=== PATIENT | male | born 1955 | race Caucasian/White ===

== ENCOUNTER 2024-12-26 15:12 | Emergency (ER) | payer MEDICARE, SELFPAY ==
--- NOTE | 2024-12-26 15:13 | ED_ITS ---
HPI - General Adult General Chief complaint: Upper Respiratory Infection Stated complaint: stomach/achey Time Seen by Provider: 12/26/24 15:24 Source: patient and RN notes reviewed Mode of arrival: ambulatory Limitations: no limitations History of Present Illness HPI narrative: 69-year-old male presents to the [facility] with complaints of having sweats, body aches, muscle and bone pain, nausea. Patient started 3 days ago. No treatment prior to arrival. Patient denies any chest pain, shortness of breath. Denies any vomiting. Unsure if he has been running a fever History of diabetes, hypertension Treatments prior to arrival: none Related Data Home Medications ?Medication ?Instructions ?Recorded ?Confirmed ?Last Taken ?Type allopurinol 300 mg tablet mg 12/26/24 Unknown History amlodipine 10 mg tablet mg 12/26/24 Unknown History insulin glargine 100 unit/mL (3 unit subcut 12/26/24 Unknown History mL) subcutaneous pen (Lantus Solostar U-100 Insulin) insulin lispro 100 unit/mL subcut 12/26/24 Unknown History subcutaneous pen (Humalog KwikPen (U-100) Insulin) telmisartan 80 tablet 12/26/24 Unknown History mg-hydrochlorothiazide 12.5 mg tablet Allergies Allergy/AdvReac Type Severity Reaction Status Date / Time bacitracin Allergy Unknown Unknown Verified 12/26/24 15:28 Review of Systems Review of Systems: All systems reviewed & are unremarkable except as noted in HPI and below Constitutional: Constitutional: Reports as per HPI ENT: Reports system reviewed and no additional complaints, except as documented Cardiovascular: Cardiovascular: Reports no additional cardiovascular complaints, Denies chest pain and Denies dyspnea Respiratory: Respiratory: Reports no additional respiratory complaints, Denies chest congestion, Denies cough and Denies dyspnea Musculoskeletal: Musculoskeletal: Reports as per HPI Integumentary/Breasts: Skin/Breast: Reports system reviewed and no additional complaints, except as docu [facility] Past Medical History Medical History (Updated 12/26/24 @ 19:39 by Aisha Marley APRN) History of essential hypertension Comments At the time of my signature, I reviewed and agree with the nursing past medical, surgical, social, and family history. There is no relevant family history pertinent to the patient complaint. Exam Const: General: cooperative, healthy appearing, comfortable, no acute distress, well developed, alert, tired appearing and well nourished Nutritional Appearance: well nourished Orientation/consciousness: patient oriented x3 Limitations: no limitations HENMT: Head: normal to inspection Ears: hearing grossly normal bilaterally, external ears normal, TM's normal bilaterally, EAC's normal, mastoids normal and no periauricular adenopathy Mouth: Yes Normal oral and palatal mucosa present, Yes lip normal, Yes tongue normal and Yes moist mucous membranes Throat: posterior oropharynx normal, uvula midline and no uvular edema Eyes: General: appearance normal, both eyes and all related structures Alignment and Position: alignment normal Neck: Neck: normal visual inspection, full ROM, no lymphadenopathy and no meningeal signs Chest: Chest palpation & inspection: normal inspection of the chest Resp: Effort & Inspection: normal respiratory effort and able to speak in complete sentences Auscultation: clear to auscultation bilaterally, no crackles, no rales, no rhonchi and no wheezes Cardio: Rate: regular rate Skin: General skin exam: normal color and no rashes or lesions noted Neuro: General: patient oriented x3, gait normal, moves all extremities and no meningeal signs Cognition (Neuro): normal cognition Speech: normal speech Gait exam (Neuro): Normal gait present Extrem: General: normal to inspection, full ROM, capillary refill normal and normal gait Psych: Appearance: grossly normal and well kempt Mental Status: mental status grossly normal Speech and movement: Normal speech and movement present and Clear speech present Affect: normal affect Attitude: cooperative Course Course Level of Care: Express Care Visit Vital Signs Vital signs: Vital Signs Temperature 99.1 F 12/26/24 15:20 Pulse Rate 76 12/26/24 15:20 Respiratory Rate 12/26/24 15:20 Blood Pressure 148/46 H 12/26/24 15:20 Pulse Oximetry 100 12/26/24 15:20 Oxygen Delivery Room Air 12/26/24 15:20 Temperature 99.1 F 12/26/24 15:20 Pulse Rate 76 12/26/24 15:20 Respiratory Rate 20 12/26/24 15:20 Blood Pressure 148/46 H 12/26/24 15:20 Pulse Oximetry 100 12/26/24 15:20 Oxygen Delivery Room Air 12/26/24 15:20 Reviewed Medical Decision Making MDM Narrative Medical decision making narrative: Patient sitting comfortably in exam room. Nontoxic, vitals stable. Patient in no acute distress Patient presents for 3 day history of body aches, upset stomach. Patient tested for flu and COVID. Patient is flu A positive Patient appropriate for outpatient treatment with close follow-up Discharge instructions reviewed with patient, as well as provided in writing per nursing staff. The instructions also include specific and strict return/GO TO THE ER as well as f/u information. All questions have been answered, and the patient deny any further questions with discharge and discharge plan. Some parts of this dictation were generated by voice recognition software and may contain typographical and/or grammatical inaccuracies. Differential Diagnosis Differential Diagnosis: Flu, COVID, URI Medical Records Medical records reviewed: Yes I reviewed the external patient's medical records. Vital Signs Vital Signs: Vital Signs Temperature 99.1 F 12/26/24 15:20 Pulse Rate 76 12/26/24 15:20 Respiratory Rate 20 12/26/24 15:20 Blood Pressure 148/46 H 12/26/24 15:20 Pulse Oximetry 100 12/26/24 15:20 Oxygen Delivery Room Air 12/26/24 15:20 Temperature 99.1 F 12/26/24 15:20 Pulse Rate 76 12/26/24 15:20 Respiratory Rate 20 12/26/24 15:20 Blood Pressure 148/46 H 12/26/24 15:20 Pulse Oximetry 100 12/26/24 15:20 Oxygen Delivery Room Air 12/26/24 15:20 Reviewed Lab Data Lab results reviewed: Yes I reviewed the patient's lab results. Labs: Lab Results 12/26/24 Range/Units 15:26 POC Influenza A Ag Positive (Negative) POC Influenza B Ag Negative (Negative) POC SARS CoV-2 Ag Negative (Negative) Reviewed Critical Care Time Critical Care Time Critical Care Time: No Discharge Plan Discharge Clinical Impression: Influenza A Patient Disposition: Home Condition: Stable Instructions: Antibiotic Form, Influenza (ED) Additional Instructions: Your rapid COVID test were negative Your rapid flu test was positive for influenza A Your symptoms are due to a viral illness, which is not treated with antibiotics. Typically viral infections last 7-10 days, can linger for couple of weeks. It is very important to treat your symptoms. Drink plenty of water, Gatorade, Pedialyte, ice pops or Jell-O. -Alternate Tylenol and Motrin per package directions for fever or pain. You can alternate every 4 hours -Antihistamine medication such as Zyrtec/Claritin/Gerda during the day can help improve symptoms. -doing daily nasal irrigations can help relieve pressure your sinuses. Things like a Neti pot -Use Flonase twice a day for 5 days then daily to help reduce the inflammation and dry up your sinuses. -You can also use Mucinex. Be sure to drink plenty of water with this medication at least 8 ounces with every dose and it is important to drink 8 to 10 glasses of water per day. Water is a natural decongestant -Eat and drink things that are easy to swallow, like tea or soup, or popsicles. -Oral rinses such as: Salt water gargles and/or may use topical anesthetic (eg. Chloraseptic spray) or lozenges to relieve dryness or throat pain). -Frequent hand washing or hand marine oil terminal superintendent is one of the best ways to prevent spread of infection. -Using a vaporizer or humidifier at night will also help thin secretions and help with coughing up phlegm. -Follow up with primary care provider in 7-10 days if condition is not improving - For new or worsening symptoms go directly to the nearest ER Patient Language: Divehi Prescriptions: No Action amlodipine 10 mg tablet telmisartan-hydrochlorothiazid 80-12.5 mg tablet allopurinol 300 mg tablet insulin lispro [Humalog KwikPen Insulin] 100 unit/mL insulin pen SUBCUT insulin glargine [Lantus Solostar U-100 Insulin] 100 unit/mL (3 mL) insulin pen SUBCUT Follow-up/Referrals: Norma,MD Kayla [Primary Care Provider] - 2 Weeks ([facility] follow up ) Time of Disposition: 15:37
[2024-12-26 15:20] VITALS: BP 148/46; PULSE 76; RESP 20; TEMP 37.3; O2SAT 100
--- OUTSIDE RECORDS SUMMARY | 2024-12-26 15:20 | XMS_ITS | Encounter Summary ---
Author Organization [facility] Address [address] 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); Cellulitis of right lower limb; Type 2 diabetes mellitus with foot ulcer (CODE) (HCC) Social History Tobacco Use Types Packs/Day Years Used Date Smoking Tobacco: Never Assessed Sex and Gender Information Value Date Recorded Sex Assigned at Not on file Legal Sex Male 2:42 PM CDT Gender Identity Not on file Sexual Orientation Not on file documented as of this encounter Plan of Treatment Not on file documented as of this encounter Procedures Procedure Name Priority Date/Time Associated Diagnosis Comments ERYTHROCYTE SEDIMENTATION RATE (ESR) Routine 06/14/2024 3:25 PM CONSTRUCTION TEACHER 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) Cellulitis of right lower limb Type 2 diabetes mellitus with foot ulcer (CODE) (HCC) COMPLETE BLOOD COUNT (CBC) WITHOUT DIFF Routine 06/14/2024 3:25 PM CONSTRUCTION TEACHER 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) Cellulitis of right lower limb Type 2 diabetes mellitus with foot ulcer (CODE) (HCC) C-REACTIVE PROTEIN (CRP) QUANT Routine 06/14/2024 3:25 PM CONSTRUCTION TEACHER 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) Cellulitis of right lower limb Type 2 diabetes mellitus with foot ulcer (CODE) (HCC) BASIC METABOLIC PANEL W/ CALCIUM TOTAL Routine 06/14/2024 3:25 PM CONSTRUCTION TEACHER 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 Results should be clinically correlated. Blood No Phlebotomy Charged / Unknown 06/14/2024 3:25 PM CONSTRUCTION TEACHER 06/14/2024 5:56 PM CONSTRUCTION TEACHER us Christ Russo MD HEMATOLOGY ORDERABLES Final Resu lt [facility] [address] [place] [address] * (ABNORMAL) COMPLETE BLOOD COUNT (CBC) WITHOUT DIFF (06/14/2024 3:25 PM CONSTRUCTION TEACHER) WBC 7.44 4.00 - 12.00 10(3)/mcL 06/14/2024 6:00 PM CONSTRUCTION TEACHER [facility] RBC 2.98(L) 4.40 - 5.80 10(6)/mcL 06/14/2024 6:[address] [facility] HEMOGLOBIN (HGB) 9.1(L) 13.0 - 16.5 g/dL 06/14/2024 6:00 PM [facility] HEMATOCRIT (HCT) 26.5(L) 38.0 - 50.0 % 06/14/2024 6:00 PM [facility] MCV 88.9 82.0 - 96.0 fL 06/14/2024 6:[address] [facility] MCH 30.5 26.0 - 32.0 pg 06/14/2024 6:00 PM [facility] MCHC 34.3 31.0 - 36.0 g/dL 06/14/2024 6:00 PM [facility] PLATELET COUNT 195 140 - 440 10(3)/mcL 06/14/2024 6:00 PM [facility] RDW 17.1(H) 11.8 - 15.5 % 06/14/2024 6:00 PM [facility] MPV 10.6 8.0 - 12.6 fL 06/14/2024 6:00 PM [facility] Blood No Phlebotomy Charged / Unknown 06/14/2024 3:25 PM CONSTRUCTION TEACHER 06/14/2024 5:56 PM CONSTRUCTION TEACHER us Christ Russo MD HEMATOLOGY ORDERABLES Final Resu lt [facility] [address] [place] [address] * (ABNORMAL) C-REACTIVE PROTEIN (CRP) QUANT (06/14/2024 3:25 PM CONSTRUCTION TEACHER) C-REACTIVE PROTEIN 0.63(H) <0.50 mg/dL 06/14/2024 6:[address] [facility] Blood No Phlebotomy Charged / Unknown 06/14/2024 3:25 PM CONSTRUCTION TEACHER 06/14/2024 5:56 PM CONSTRUCTION TEACHER us Christ Russo MD CHEMISTRY ORDERABLES Final Resul t [facility] [address] [place] [address] * (ABNORMAL) BASIC METABOLIC PANEL W/ CALCIUM TOTAL (06/14/2024 3:25 PM CONSTRUCTION TEACHER) SODIUM 141 136 - 145 mmol/L 06/14/2024 6:[address] [facility] POTASSIUM 5.7(H) 3.5 - 5.1 mmol/L 06/14/2024 6:19 PM [facility] CHLORIDE 112(H) 98 - 107 mmol/L 06/14/2024 6:19 PM [facility] CO2, VENOUS 21(L) 22 - 30 mmol/L 06/14/2024 6:19 PM [facility] ANION GAP 13.7 <18.0 mmol/L 06/14/2024 6:19 PM [facility] GLUCOSE 119(H) 70 - 99 mg/dL 06/14/2024 6:19 PM [facility] BUN 37(H) 8 - 26 mg/dL 06/14/2024 6:19 PM [facility] CREATININE, BLOOD 1.52(H) 0.70 - 1.30 mg/dL 06/14/2024 6:19 PM [facility] BUN/CREATININE RATIO 24(H) 12 - 20 ratio 06/14/2024 6:19 PM [facility] CALCIUM 8.7 8.7 - 10.5 mg/dL 06/14/2024 6:19 PM [facility] GFR, ESTIMATED 50(L) >=60 06/14/2024 6:19 PM [facility] Comment: Creatinine Clearance is the preferred criteria for selecting drug dose adjustments in renally impaired patients. The GFR is provided as additional pertinent clinical information. GFR is reported in mL/min/1.73 sq m. Calculation based on the Chronic Kidney Disease Epidemiology Collaboration (CKD- EPI) equation refit without adjustment for race. GFR, EST. 56(L) >=60 025 6:19 PM CONSTRUCTION TEACHER [facility] GFR, EST. NONAFRICAN 46(L) >=60 06/14/2024 6:19 PM CONSTRUCTION TEACHER [facility] Blood No Phlebotomy Charged / Unknown 06/14/2024 3:25 PM CONSTRUCTION TEACHER 06/14/2024 5:56 PM CONSTRUCTION TEACHER us Christ Russo MD CHEMISTRY ORDERABLES Final Resul t [facility] [address] [place] [address] documented in this encounter Visit Diagnoses Diagnosis Non-pressure chronic ulcer of other part of right lower leg with fat layer exposed Cellulitis of right lower limb Type 2 diabetes mellitus with foot ulcer (CODE) documented in this encounter Care Teams Painter Helper Relationship Specialty Start Date End Date Kayla Green MD [address] [address] [place] [address] [address] PCP - General Family Medicine 06/02/24 documented as of this encounter
--- OUTSIDE RECORDS SUMMARY | 2024-12-26 15:20 | XMS_ITS | Encounter Summary ---
Author Organization [facility] Address [address] 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); Cellulitis of right lower limb Social History Tobacco Use Types Packs/Day Years [...] Procedure Name Priority Date/Time Associated Diagnosis Comments CBC WITH AUTO DIFFERENTIAL Routine 06/28/2024 8:34 AM INTERNET SALESPERSON Type 2 diabetes mellitus with foot ulcer (CODE) (HCC) 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) Cellulitis of right lower limb ERYTHROCYTE SEDIMENTATION RATE (ESR) Routine 06/28/2024 8:34 AM INTERNET SALESPERSON Type 2 diabetes mellitus with foot ulcer (CODE) (HCC) 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) Cellulitis of right lower limb COMPLETE BLOOD COUNT (CBC) WITH DIFF Routine 06/28/2024 8:34 AM INTERNET SALESPERSON Type 2 diabetes mellitus with foot ulcer (CODE) (HCC) 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) Cellulitis of right lower limb C-REACTIVE PROTEIN (CRP) QUANT Routine 06/28/2024 8:34 AM INTERNET SALESPERSON Type 2 diabetes mellitus with foot ulcer (CODE) (HCC) 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) Cellulitis of right lower limb BASIC METABOLIC PANEL W/ CALCIUM TOTAL Routine 06/28/2024 8:34 AM INTERNET SALESPERSON Type 2 diabetes mellitus with foot ulcer (CODE) (HCC) 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0 fL 06/28/2024 10:10 AM [facility] MCH 30.7 26.0 - 32.0 pg 06/28/2024 10:10 AM [facility] MCHC 35.1 31.0 - 36.0 g/dL 06/28/2024 10:10 AM [facility] PLATELET COUNT 186 140 - 440 10(3)/[facility] 06/28/2024 10:10 AM [facility] RDW 16.7(H) 11.8 - 15.5 % 06/28/2024 10:10 AM [facility] MPV 10.7 8.0 - 12.6 fL 06/28/2024 10:10 AM [facility] NEUTROPHILS 61.3 40.0 - 68.0 % 06/28/2024 10:10 AM [facility] LYMPHOCYTES 26.6 19.0 - 49.0 % 06/28/2024 10:10 AM [facility] MONOCYTES 5.7 3.0 - 13.0 % 06/28/2024 10:10 AM [facility] EOSINOPHILS 5.9 0.0 - 8.0 % 06/28/2024 10:10 AM [facility] BASOPHILS 0.5 0.0 - 1.0 % 06/28/2024 10:10 AM [facility] ABSOLUTE NEUTROPHILS 3.87 1.40 - 5.30 10(3)/[facility] 06/28/2024 10:10 AM [facility] ABSOLUTE LYMPHOCYTES 1.68 0.90 - 3.30 10(3)/[facility] 06/28/2024 10:10 AM [facility] ABSOLUTE MONOCYTES 0.36 0.10 - 0.90 10(3)/mcL 06/28/2024 10:10 AM [facility] ABSOLUTE EOSINOPHIL 0.37 0.00 - 0.50 10(3)/[facility] 06/28/2024 10:10 AM [facility] ABSOLUTE BASOPHILS 0.03 0.00 - 0.10 10(3)/[facility] 06/28/2024 10:10 AM [facility] NRBC PER 100 WBC 0 06/28/19 10:10 AM [facility] Blood No Phlebotomy Charged / Unknown 06/28/2024 8:34 AM INTERNET SALESPERSON 06/28/2024 10:08 AM INTERNET SALESPERSON us Christ Russo MD HEMATOLOGY ORDERABLES Final Resu lt Performing Organization Address City/[facility] Co de Phone Number [facility] [address] [place] [address] * ERYTHROCYTE SEDIMENTATION RATE (ESR) (06/28/2024 8:34 AM INTERNET SALESPERSON) ESR (SED RATE, ERYTHROCYTE SEDIMENTATION RATE) <1 <20 mm/h 06/28/2024 10:12 AM INTERNET SALESPERSON [facility] Comment: Patients presenting with increased level of fibrinogen, gamma globulins, or abnormally shaped RBCs could affect the results for the erythrocyte sedimentation rate (ESR). Results should be clinically correlated. Blood No Phlebotomy Charged / Unknown 06/28/2024 8:34 AM INTERNET SALESPERSON 06/28/2024 10:08 AM INTERNET SALESPERSON us Christ Russo MD HEMATOLOGY ORDERABLES Final Resu lt Performing Organization Address [facility] Co de Phone Number [facility] [address] [place] [address] * C-REACTIVE PROTEIN (CRP) QUANT (06/28/2024 8:34 AM INTERNET SALESPERSON) C-REACTIVE PROTEIN 0.30 <0.50 mg/dL 06/28/2024 10:32 AM INTERNET SALESPERSON [facility] Blood No Phlebotomy Charged / Unknown 06/28/2024 8:34 AM INTERNET SALESPERSON 06/28/2024 10:08 AM INTERNET SALESPERSON us Christ Russo MD CHEMISTRY ORDERABLES Final Resul t Performing Organization Address City/[facility] Co de Phone Number [facility] [address] [place] [address] * (ABNORMAL) BASIC METABOLIC PANEL W/ CALCIUM TOTAL (06/28/2024 8:34 AM [facility]) SODIUM 142 136 - 145 mmol/L 06/28/2024 10:32 AM [facility] POTASSIUM 5.2(H) 3.5 - 5.1 mmol/L 06/28/2024 10:32 AM [facility] CHLORIDE 112(H) 98 - 107 mmol/L 06/28/2024 10:32 AM [facility] CO2, VENOUS 24 22 - 30 mmol/L 06/28/2024 10:32 AM [facility] ANION GAP 11.2 <18.0 mmol/L 06/28/2024 10:32 AM [facility] GLUCOSE 131(H) 70 - 99 mg/dL 06/28/2024 10:32 AM [facility] BUN 40(H) 8 - 26 mg/dL 06/28/2024 10:32 AM [facility] CREATININE, BLOOD 1.45(H) 0.70 - 1.30 mg/dL 06/28/2024 10:32 AM [facility] BUN/CREATININE RATIO 28(H) 12 - 20 ratio 06/28/2024 10:32 AM [facility] CALCIUM 8.7 8.7 - 10.5 mg/dL 06/28/2024 10:32 AM [facility] GFR, ESTIMATED 53(L) >=60 06/28/2024 10:32 AM [facility] Comment: Creatinine Clearance is the preferred criteria for selecting drug dose adjustments in renally impaired patients. The GFR is provided as additional pertinent clinical information. GFR is reported in mL/min/1.73 sq m. Calculation based on the Chronic Kidney Disease Epidemiology Collaboration (CKD- EPI) equation refit without adjustment for race. GFR, EST. 59(L) >=60 025 10:32 AM [facility] GFR, EST. NONAFRICAN 49(L) >=60 06/28/2024 10:32 AM [facility] Blood No Phlebotomy Charged / Unknown 06/28/2024 8:34 AM INTERNET SALESPERSON 06/28/2024 10:08 AM INTERNET SALESPERSON us Christ Russo MD CHEMISTRY ORDERABLES Final Resul t [facility] [address] [place] [address] documented in this encounter Visit Diagnoses Diagnosis Type 2 diabetes mellitus with foot ulcer (CODE) Non-pressure chronic ulcer of other part of right lower leg with fat layer exposed Cellulitis of right lower limb documented in this encounter Care Teams First Aid Director Relationship Specialty Start Date End Date Kayla Green MD [address] [place] [address] [place] [address] PCP - General Family Medicine 06/02/24 documented as of this encounter
--- OUTSIDE RECORDS SUMMARY | 2024-12-26 15:20 | XMS_ITS | Clinical Summary ---
Author Organization [facility] Address [facility] [place] [address] Care Team Providers Care Recovery Room Nurse Name Role Phone Unavailable Primary Care Provider Unavailabl e Social History Tobacco Use Types Packs/Day Years Used Date Smoking Tobacco: Never Assessed Sex and Gender Information Value Date Recorded Sex Assigned at Not on file Legal Sex Male 5:50 PM NURSING STAFFING COORDINATOR Gender Identity Not on file Sexual Orientation Not on file Plan of Treatment Health Maintenance Due Date Last Done Comments Colorectal Cancer Screening Colonoscopy (10 Years) 1957 Hepatitis C 1975 DTaP, Tdap and Td Vaccines ( 1 - Tdap) 02/02/1976 Pneumococcal Vaccine: 50+ Ye ars (1 of 1 - PCV) 2007 Zoster Vaccines (1 of 2) 2007 COVID-19 Vaccine ( - 2023-2 5 season) 2024 RSV Immunization or 60+ Years (1 - 1-dose 75+ series) 02/02/2032 Meningococcal B Vaccine Aged Out No l onger eligible based on patient's age to complete this topic Meningococcal Vaccine Aged Out No choco arnulfo eligible based on patient's age to complete this topic RSV Immunizations Under 20 Months Aged Out No longer eligible based on patient's age to complete this topic
--- OUTSIDE RECORDS SUMMARY | 2024-12-26 15:20 | XMS_ITS | Encounter Summary ---
Author Organization [facility] Address [address] [place] [address] Phone Care Team Providers Care Service Desk Agent Name Role Phone Kayla Green MD Primary Care Provide r Encounter Details Date Type Department Care Team (Late st Contact Info) Description 07/05/2024 Lab Requisition [facility] Laboratory Services [address] [place] [address] Christ Russo MD [address] [place] [address] Type 2 diabetes mellitus with foot ulcer [...] Diagnosis Comments CBC WITH AUTO DIFFERENTIAL Routine 07/05/2024 8:30 AM [employer] Type 2 diabetes mellitus with foot ulcer (CODE) (HCC) ERYTHROCYTE SEDIMENTATION RATE (ESR) Routine 07/05/2024 8:30 AM [employer] Type 2 diabetes mellitus with foot ulcer (CODE) (HCC) COMPLETE BLOOD COUNT (CBC) WITH DIFF Routine 07/05/2024 8:30 AM [employer] Type 2 diabetes mellitus with foot ulcer (CODE) (HCC) C-REACTIVE PROTEIN (CRP) QUANT Routine 07/05/2024 8:30 AM [employer] Type 2 diabetes mellitus with foot ulcer (CODE) (HCC) BASIC METABOLIC PANEL W/ CALCIUM TOTAL Routine 07/05/2024 8:30 AM [employer] Type 2 diabetes mellitus with foot ulcer (CODE) (HCC) documented in this encounter Results * (ABNORMAL) CBC WITH AUTO DIFFERENTIAL (07/05/2024 8:30 AM [employer]NA[employer]) [facility] WBC 5.89 4.00 - 12.00 10(3)/mcL 07/05/2024 9:27 AM [facility] RBC 3.10(L) 4.40 - 5.80 10(6)/mcL 07/05/2024 9:27 AM [facility] HEMOGLOBIN (HGB) 9.6(L) 13.0 - 16.5 g/dL 07/05/2024 9:27 AM [facility] HEMATOCRIT (HCT) 27.0(L) 38.0 - 50.0 % 07/05/2024 9:27 AM [facility] MCV 87.1 82.0 - 96.0 fL 07/05/2024 9:27 AM [facility] MCH 31.0 26.0 - 32.0 pg 07/05/2024 9:27 AM [facility] MCHC 35.6 31.0 - 36.0 g/dL 07/05/2024 9:27 AM [facility] PLATELET COUNT 169 140 - 440 10(3)/mcL 07/05/2024 9:27 AM [facility] RDW 17.1(H) 11.8 - 15.5 % 07/05/2024 9:27 AM [facility] MPV 10.8 8.0 - 12.6 fL 07/05/2024 9:27 AM [facility] NEUTROPHILS 61.4 40.0 - 68.0 % 07/05/2024 9:27 AM [employer] [facility] LYMPHOCYTES 27.2 19.0 - 49.0 % 07/05/2024 9:27 AM [employer] [facility] MONOCYTES 5.6 3.0 - 13.0 % 07/05/2024 9:27 AM [facility] EOSINOPHILS 5.3 0.0 - 8.0 % 07/05/2024 9:27 AM [facility] BASOPHILS 0.5 0.0 - 1.0 % 07/05/2024 9:27 AM [employer] [facility] ABSOLUTE NEUTROPHILS 3.62 1.40 - 5.30 10(3)/[facility] 07/05/2024 9:27 AM [facility] ABSOLUTE LYMPHOCYTES 1.60 0.90 - 3.30 10(3)/[facility] 07/05/2024 9:27 AM [facility] ABSOLUTE MONOCYTES 0.33 0.10 - 0.90 10(3)/[facility] 07/05/2024 9:27 AM [facility] ABSOLUTE EOSINOPHIL 0.31 0.00 - 0.50 10(3)/[facility] 07/05/2024 9:27 AM [facility] ABSOLUTE BASOPHILS 0.03 0.00 - 0.10 10(3)/[facility] 07/05/2024 9:27 AM [facility] NRBC PER 100 WBC 0 07/05/19 25 9:27 AM [facility] Blood No Phlebotomy Charged / Unknown 07/05/2024 8:30 AM [employer] 07/05/2024 9:22 AM [facility] us Christ Russo MD HEMATOLOGY ORDERABLES Final Resu lt [facility] [address] [place] [address] * ERYTHROCYTE SEDIMENTATION RATE (ESR) (07/05/2024 8:30 AM [facility]) ESR (SED RATE, ERYTHROCYTE SEDIMENTATION RATE) <1 <20 mm/h 07/05/2024 9:33 AM [employer] [facility] Comment: Patients presenting with increased level of fibrinogen, gamma globulins, or abnormally shaped RBCs could affect the results for the erythrocyte sedimentation rate (ESR). Results should be clinically correlated. Blood No Phlebotomy Charged / Unknown 07/05/2024 8:30 AM [employer] 07/05/2024 9:22 AM [employer] Christ Russo MD HEMATOLOGY ORDERABLES Final Resu lt Performing Organization Address City/[facility]/ZIP Co de Phone Number [facility] [address] [place] [address] * C-REACTIVE PROTEIN (CRP) QUANT (07/05/2024 8:30 AM [employer]) C-REACTIVE PROTEIN 0.21 <0.50 mg/dL 07/05/2024 9:47 AM [employer] [facility] Blood No Phlebotomy Charged / Unknown 07/05/2024 8:30 AM [employer] 07/05/2024 9:22 AM [employer] Christ Russo MD CHEMISTRY ORDERABLES Final Resul t Performing Organization Address [facility] Co de Phone Number [facility] [address] [place] [address] * (ABNORMAL) BASIC METABOLIC PANEL W/ CALCIUM TOTAL (07/05/2024 8:30 AM [employer]) SODIUM 143 136 - 145 mmol/L 07/05/2024 9:47 AM [employer] [facility] POTASSIUM 5.1 3.5 - 5.1 mmol/L 07/05/2024 9:47 AM [employer] [facility] CHLORIDE 114(H) 98 - 107 mmol/L 07/05/2024 9:47 AM [employer] [facility] CO2, VENOUS 22 22 - 30 mmol/L 07/05/2024 9:47 AM [employer] [facility] ANION GAP 12.1 <18.0 mmol/L 07/05/2024 9:47 AM [employer] [facility] GLUCOSE 110(H) 70 - 99 mg/dL 07/05/2024 9:47 AM [facility] BUN 34(H) 8 - 26 mg/dL 07/05/2024 9:47 AM [facility] CREATININE, BLOOD 1.41(H) 0.70 - 1.30 mg/dL 07/05/2024 9:47 AM [facility] BUN/CREATININE RATIO 24(H) 12 - 20 ratio 07/05/2024 9:47 AM [facility] CALCIUM 8.8 8.7 - 10.5 mg/dL 07/05/2024 9:47 AM [employer] [facility] GFR, ESTIMATED 55(L) >=60 07/05/2024 9:47 AM [facility] Comment: Creatinine Clearance is the preferred criteria for selecting drug dose adjustments in renally impaired patients. The GFR is provided as additional pertinent clinical information. GFR is reported in mL/min/1.73 sq m. Calculation based on the Chronic Kidney Disease Epidemiology Collaboration (CKD- EPI) equation refit without adjustment for race. GFR, EST. >60 >=60 025 9:47 AM [employer] [facility] GFR, EST. NONAFRICAN 50(L) >=60 07/05/2024 9:47 AM [facility] Blood No Phlebotomy Charged / Unknown 07/05/2024 8:30 AM [employer] 07/05/2024 9:22 AM [employer] us Christ Russo MD CHEMISTRY ORDERABLES Final Resul t [facility] [address] [place] [address] documented in this encounter Visit Diagnoses Diagnosis Type 2 diabetes mellitus with foot ulcer (CODE) documented in this encounter Care Teams Service Desk Agent Relationship Specialty Start Date End Date Kayla Green MD [address] [facility] [address] [place] [id number] PCP - General Family Medicine 06/02/24 documented as of this encounter
--- OUTSIDE RECORDS SUMMARY | 2024-12-26 15:20 | XMS_ITS | Clinical Summary ---
Author Organization [facility] Facility Address [address] [place] [id number] Care Team Providers Care Recycling Tech Name Role Phone Unavailable Primary Care Provider Unavailabl e Allergies Active Allergy Reactions Criticality Noted Date Comments Bacitracin Anaphylaxis High 12/18/2020 Medications allopurinol (ZYLOPRIM) 300 MG tablet Take 300 mg by mouth 1 (one) time each day Active aspirin (ST JESSICA) 81 MG EC tablet Take 162 mg by mouth 1 (one) time each day Active glucose blood test strip 1 each by Other route 4 times a day Use as instructed USE TO TEST BLOOD SUGAR LEVELS 4 TIMES DAILY. Active furosemide (LASIX) 20 MG tablet Take 20 mg by mouth 1 (one) time each day Active insulin glargine (LANTUS) 100 UNIT/ML injection Inject 60 Units under the skin 1 (one) time each day Inject 60 units under the skin daily this takes the place of levemir Active insulin lispro (HumaLOG) 100 UNIT/ML injection Inject 30 Units under the skin 3 (three) times a day before meals Active rosuvastatin (CRESTOR) 5 MG tablet Take 5 mg by mouth 1 (one) time each day Active telmisartan (MICARDIS) 40 MG tablet Take 40 mg by mouth 1 (one) time each day Active Social History Tobacco Use Types Packs/Day Years Used Date Smoking Tobacco: Never Assessed Sex and Gender Information Value Date Recorded Sex Assigned at Not on file Legal Sex Male 6:37 PM EDT Gender Identity Not on file Sexual Orientation Not on file Plan of Treatment Health Maintenance Due Date Last Done Comments Colorectal Cancer Screening: Annual FOBT 2006 Colorectal Cancer Screening: Sigmoidoscopy 2006 Pneumococcal Vaccine: 50+ Years (4 of 4 - PCV20 or PCV21) 04/25/2020 04/25/2015, 06/08/2009, 03/14/2009 Diabetes: Hemoglobin A1C 06/15/2024 03/14/2024 Diabetes: Ophthalmology Exam 06/15/2024 Diabetes: Pedal Pulse Checked 06/15/2024 Diabetes: Sensory Foot Exam 06/15/2024 Diabetes: Visual Foot Exam 06/15/2024 Influenza Vaccine (#1) 2025 1, 04/12/2019, 03/18/2018, Additional history exists Colorectal Cancer Screening: Colonoscopy 07/21/2029 07/21/2019 Pneumococcal Vaccine: Peds (0 to 5 Years) and At-Risk Patients (6 to 49 Years) Discontinued 04/25/2015, 06/08/2009, 03/14/2009 Hepatitis B Vaccine Aged Out No longe r eligible based on patient's age to complete this topic
--- OUTSIDE RECORDS SUMMARY | 2024-12-26 15:20 | XMS_ITS | Encounter Summary ---
Author Organization [facility] Address [address] 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) ERYTHROCYTE SEDIMENTATION RATE (ESR) Routine 06/07/2024 8:30 AM ADULT SECONDARY EDUCATION INSTRUCTOR 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) COMPLETE BLOOD COUNT (CBC) WITH DIFF Routine 06/07/2024 8:30 AM ADULT SECONDARY EDUCATION INSTRUCTOR 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) C-REACTIVE PROTEIN (CRP) QUANT Routine 06/07/2024 8:30 AM ADULT SECONDARY EDUCATION INSTRUCTOR 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) BASIC METABOLIC PANEL W/ CALCIUM TOTAL Routine 06/07/2024 8:30 AM ADULT SECONDARY EDUCATION INSTRUCTOR 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) documented in this encounter Results * (ABNORMAL) CBC WITH AUTO DIFFERENTIAL (06/07/2024 8:30 AM ADULT SECONDARY EDUCATION INSTRUCTOR) WBC 5.80 4.00 - 12.00 10(3)/mcL 06/07/2024 9:31 AM [facility] RBC 3.15(L) 4.40 - 5.80 10(6)/mcL 06/07/2024 9:31 AM [facility] HEMOGLOBIN (HGB) 9.8(L) 13.0 - 16.5 g/dL 06/07/2024 9:31 AM [facility] HEMATOCRIT (HCT) 27.9(L) 38.0 - 50.0 % 06/07/2024 9:31 AM [facility] MCV 88.6 82.0 - 96.0 fL 06/07/2024 9:31 AM [facility] MCH 31.1 26.0 - 32.0 pg 06/07/2024 9:31 AM [facility] MCHC 35.1 31.0 - 36.0 g/dL 06/07/2024 9:31 AM [facility] PLATELET COUNT 181 140 - 440 10(3)/mcL 06/07/2024 9:31 AM [facility] RDW 17.0(H) 11.8 - 15.5 % 06/07/2024 9:31 AM [facility] MPV 10.3 8.0 - 12.6 fL 06/07/2024 9:31 AM ADULT SECONDARY EDUCATION INSTRUCTOR [facility] NEUTROPHILS 66.2 40.0 - 68.0 % 06/07/2024 9:31 AM ADULT SECONDARY EDUCATION INSTRUCTOR [facility] LYMPHOCYTES 24.7 19.0 - 49.0 % 06/07/2024 9:31 AM [facility] MONOCYTES 5.7 3.0 - 13.0 % 06/07/2024 9:31 AM ADULT SECONDARY EDUCATION INSTRUCTOR [facility] EOSINOPHILS 3.1 0.0 - 8.0 % 06/07/2024 9:31 AM ADULT SECONDARY EDUCATION INSTRUCTOR [facility] BASOPHILS 0.3 0.0 - 1.0 % 06/07/2024 9:31 AM [facility] ABSOLUTE NEUTROPHILS 3.84 1.40 - 5.30 10(3)/[facility] 06/07/2024 9:31 AM [facility] ABSOLUTE LYMPHOCYTES 1.43 0.90 - 3.30 10(3)/[facility] 06/07/2024 9:31 AM [facility] ABSOLUTE MONOCYTES 0.33 0.10 - 0.90 10(3)/[facility] 06/07/2024 9:31 AM [facility] ABSOLUTE EOSINOPHIL 0.18 0.00 - 0.50 10(3)/[facility] 06/07/2024 9:31 AM [facility] ABSOLUTE BASOPHILS 0.02 0.00 - 0.10 10(3)/[facility] 06/07/2024 9:31 AM [facility] NRBC PER 100 WBC 0 06/07/20 9:31 AM [facility] Blood No Phlebotomy Charged / Unknown 06/07/2024 8:30 AM ADULT SECONDARY EDUCATION INSTRUCTOR 06/07/2024 9:28 AM [facility] us Christ Russo MD HEMATOLOGY ORDERABLES Final Resu lt [facility] [address] [place] [address] * ERYTHROCYTE SEDIMENTATION RATE (ESR) (06/07/2024 8:30 AM ADULT SECONDARY EDUCATION INSTRUCTOR) ESR (SED RATE, ERYTHROCYTE SEDIMENTATION RATE) <1 <20 mm/h 06/07/2024 9:49 AM ADULT SECONDARY EDUCATION INSTRUCTOR [facility] Comment: Patients presenting with increased level of fibrinogen, gamma globulins, or abnormally shaped RBCs could affect the results for the erythrocyte sedimentation rate (ESR). Results should be clinically correlated. Blood No Phlebotomy Charged / Unknown 06/07/2024 8:30 AM ADULT SECONDARY EDUCATION INSTRUCTOR 06/07/2024 9:28 AM ADULT SECONDARY EDUCATION INSTRUCTOR us Christ Russo MD HEMATOLOGY ORDERABLES Final Resu lt Performing Organization Address [facility] Co de Phone Number [facility] [address] [place] [address] * C-REACTIVE PROTEIN (CRP) QUANT (06/07/2024 8:30 AM ADULT SECONDARY EDUCATION INSTRUCTOR) Pathologist [facility] C-REACTIVE PROTEIN 0.36 <0.50 mg/dL 06/07/2024 9:48 AM ADULT SECONDARY EDUCATION INSTRUCTOR [facility] Blood No Phlebotomy Charged / Unknown 06/07/2024 8:30 AM ADULT SECONDARY EDUCATION INSTRUCTOR 06/07/2024 9:28 AM ADULT SECONDARY EDUCATION INSTRUCTOR us Christ Russo MD CHEMISTRY ORDERABLES Final Resul t Performing Organization Address [facility] Co de Phone Number [facility] [address] [place] [address] * (ABNORMAL) BASIC METABOLIC PANEL W/ CALCIUM TOTAL (06/07/2024 8:30 AM ADULT SECONDARY EDUCATION INSTRUCTOR) Pathologist [facility] SODIUM 143 136 - 145 mmol/L 06/07/2024 9:48 AM ADULT SECONDARY EDUCATION INSTRUCTOR [facility] POTASSIUM 4.4 3.5 - 5.1 mmol/L 06/07/2024 9:48 AM ADULT SECONDARY EDUCATION INSTRUCTOR [facility] CHLORIDE 114(H) 98 - 107 mmol/L 06/07/2024 9:48 AM ADULT SECONDARY EDUCATION INSTRUCTOR [facility] CO2, VENOUS 23 22 - 30 mmol/L 06/07/2024 9:48 AM ADULT SECONDARY EDUCATION INSTRUCTOR [facility] ANION GAP 10.4 <18.0 mmol/L 06/07/2024 9:48 AM ADULT SECONDARY EDUCATION INSTRUCTOR [facility] GLUCOSE 153(H) 70 - 99 mg/dL 06/07/2024 9:48 AM ADULT SECONDARY EDUCATION INSTRUCTOR [facility] BUN 38(H) 8 - 26 mg/dL 06/07/2024 9:48 AM ADULT SECONDARY EDUCATION INSTRUCTOR [facility] CREATININE, BLOOD 1.28 0.70 - 1.30 mg/dL 06/07/2024 9:48 AM ADULT SECONDARY EDUCATION INSTRUCTOR [facility] BUN/CREATININE RATIO 30(H) 12 - 20 ratio 06/07/2024 9:48 AM [facility] CALCIUM 8.6(L) 8.7 - 10.5 mg/dL 06/07/2024 9:48 AM ADULT SECONDARY EDUCATION INSTRUCTOR [facility] GFR, ESTIMATED >60 >=60 06/07/2024 9:48 AM [facility] Comment: Creatinine Clearance is the preferred criteria for selecting drug dose adjustments in renally impaired patients. The GFR is provided as additional pertinent clinical information. GFR is reported in mL/min/1.73 sq m. Calculation based on the Chronic Kidney Disease Epidemiology Collaboration (CKD- EPI) equation refit without adjustment for race. GFR, EST. >60 >=60 024 9:48 AM ADULT SECONDARY EDUCATION INSTRUCTOR [facility] GFR, EST. NONAFRICAN 56(L) >=60 06/07/2024 9:48 AM [facility] Blood No Phlebotomy Charged / Unknown 06/07/2024 8:30 AM ADULT SECONDARY EDUCATION INSTRUCTOR 06/07/2024 9:28 AM ADULT SECONDARY EDUCATION INSTRUCTOR us Christ Russo MD CHEMISTRY ORDERABLES Final Resul t [facility] [address] [place] [address] documented in this encounter Visit Diagnoses Diagnosis Non-pressure chronic ulcer of other part of right lower leg with fat layer exposed documented in this encounter Care Teams Salon Supervisor Relationship Specialty Start Date End Date Kayla Green MD [address] [facility] [address] [place] [id number] PCP - General Family Medicine 06/02/24 documented as of this encounter
--- OUTSIDE RECORDS SUMMARY | 2024-12-26 15:20 | XMS_ITS | Encounter Summary ---
Author Organization [facility] Address [address] [place] [address] Phone Care Team Providers Care Child Care Specialist Name Role Phone Kayla Green MD Primary Care Provide r Encounter Details Date Type Department Care Team (Late st Contact Info) Description 07/12/2024 Lab Requisition [facility] [address] [place] [address] Christ Russo MD [address] [place] [address] Type 2 diabetes mellitus with foot ulcer [...] Diagnosis Comments CBC WITH AUTO DIFFERENTIAL Routine 07/12/2024 8:10 AM OUTSIDE SALES ACCOUNT EXECUTIVE Type 2 diabetes mellitus with foot ulcer (CODE) (HCC) ERYTHROCYTE SEDIMENTATION RATE (ESR) Routine 07/12/2024 8:10 AM OUTSIDE SALES ACCOUNT EXECUTIVE Type 2 diabetes mellitus with foot ulcer (CODE) (HCC) COMPLETE BLOOD COUNT (CBC) WITH DIFF Routine 07/12/2024 8:10 AM OUTSIDE SALES ACCOUNT EXECUTIVE Type 2 diabetes mellitus with foot ulcer (CODE) (HCC) C-REACTIVE PROTEIN (CRP) QUANT Routine 07/12/2024 8:10 AM OUTSIDE SALES ACCOUNT EXECUTIVE Type 2 diabetes mellitus with foot ulcer (CODE) (HCC) BASIC METABOLIC PANEL W/ CALCIUM TOTAL Routine 07/12/2024 8:10 AM OUTSIDE SALES ACCOUNT EXECUTIVE Type 2 diabetes mellitus with foot ulcer (CODE) (HCC) documented in this encounter Results * (ABNORMAL) CBC WITH AUTO DIFFERENTIAL (07/12/2024 8:10 AM OUTSIDE SALES ACCOUNT EXECUTIVE) [facility] WBC 5.51 4.00 - 12.00 10(3)/mcL 07/12/2024 9:04 AM [facility] RBC 3.03(L) 4.40 - 5.80 10(6)/mcL 07/12/2024 9:04 AM [facility] HEMOGLOBIN (HGB) 9.4(L) 13.0 - 16.5 g/dL 07/12/2024 9:04 AM [facility] HEMATOCRIT (HCT) 26.7(L) 38.0 - 50.0 % 07/12/2024 9:04 AM [facility] MCV 88.1 82.0 - 96.0 fL 07/12/2024 9:04 AM [facility] MCH 31.0 26.0 - 32.0 pg 07/12/2024 9:04 AM [facility] MCHC 35.2 31.0 - 36.0 g/dL 07/12/2024 9:04 AM [facility] PLATELET COUNT 161 140 - 440 10(3)/mcL 07/12/2024 9:04 AM [facility] RDW 17.2(H) 11.8 - 15.5 % 07/12/2024 9:04 AM [facility] MPV 11.0 8.0 - 12.6 fL 07/12/2024 9:04 AM [facility] NEUTROPHILS 58.5 40.0 - 68.0 % 07/12/2024 9:04 AM [facility] LYMPHOCYTES 31.2 19.0 - 49.0 % 07/12/2024 9:04 AM [facility] MONOCYTES 4.7 3.0 - 13.0 % 07/12/2024 9:04 AM [facility] EOSINOPHILS 5.1 0.0 - 8.0 % 07/12/2024 9:04 AM [facility] BASOPHILS 0.5 0.0 - 1.0 % 07/12/2024 9:04 AM [facility] ABSOLUTE NEUTROPHILS 3.22 1.40 - 5.30 10(3)/[facility] 07/12/2024 9:04 AM [facility] ABSOLUTE LYMPHOCYTES 1.72 0.90 - 3.30 10(3)/[facility] 07/12/2024 9:04 AM [facility] ABSOLUTE MONOCYTES 0.26 0.10 - 0.90 10(3)/[facility] 07/12/2024 9:04 AM [facility] ABSOLUTE EOSINOPHIL 0.28 0.00 - 0.50 10(3)/[facility] 07/12/2024 9:04 AM [facility] ABSOLUTE BASOPHILS 0.03 0.00 - 0.10 10(3)/[facility] 07/12/2024 9:04 AM [facility] NRBC PER 100 WBC 0 07/12/19 25 9:04 AM [facility] Blood No Phlebotomy Charged / Unknown 07/12/2024 8:10 AM [facility] 07/12/2024 9:01 AM [facility] us Christ Russo MD HEMATOLOGY ORDERABLES Final Resu lt [facility] [address] [place] [address] * ERYTHROCYTE SEDIMENTATION RATE (ESR) (07/12/2024 8:10 AM [facility]) ESR (SED RATE, ERYTHROCYTE SEDIMENTATION RATE) <1 <20 mm/h 07/12/2024 9:06 AM OUTSIDE SALES ACCOUNT EXECUTIVE [facility] Comment: Patients presenting with increased level of fibrinogen, gamma globulins, or abnormally shaped RBCs could affect the results for the erythrocyte sedimentation rate (ESR). Results should be clinically correlated. Blood No Phlebotomy Charged / Unknown 07/12/2024 8:10 AM OUTSIDE SALES ACCOUNT EXECUTIVE 07/12/2024 9:01 AM OUTSIDE SALES ACCOUNT EXECUTIVE Christ Russo MD HEMATOLOGY ORDERABLES Final Resu lt Performing Organization Address City/[facility]/ZIP Co de Phone Number [facility] [address] [place] [address] * C-REACTIVE PROTEIN (CRP) QUANT (07/12/2024 8:10 AM OUTSIDE SALES ACCOUNT EXECUTIVE) C-REACTIVE PROTEIN 0.18 <0.50 mg/dL 07/12/2024 9:25 AM OUTSIDE SALES ACCOUNT EXECUTIVE [facility] Blood No Phlebotomy Charged / Unknown 07/12/2024 8:10 AM OUTSIDE SALES ACCOUNT EXECUTIVE 07/12/2024 9:01 AM OUTSIDE SALES ACCOUNT EXECUTIVE Christ Russo MD CHEMISTRY ORDERABLES Final Resul t Performing Organization Address [facility] Co de Phone Number [facility] [address] [place] [address] * (ABNORMAL) BASIC METABOLIC PANEL W/ CALCIUM TOTAL (07/12/2024 8:10 AM OUTSIDE SALES ACCOUNT EXECUTIVE) SODIUM 145 136 - 145 mmol/L 07/12/2024 9:25 AM OUTSIDE SALES ACCOUNT EXECUTIVE [facility] POTASSIUM 5.1 3.5 - 5.1 mmol/L 07/12/2024 9:25 AM OUTSIDE SALES ACCOUNT EXECUTIVE [facility] CHLORIDE 116(H) 98 - 107 mmol/L 07/12/2024 9:25 AM OUTSIDE SALES ACCOUNT EXECUTIVE [facility] CO2, VENOUS 24 22 - 30 mmol/L 07/12/2024 9:25 AM OUTSIDE SALES ACCOUNT EXECUTIVE [facility] ANION GAP 10.1 <18.0 mmol/L 07/12/2024 9:25 AM OUTSIDE SALES ACCOUNT EXECUTIVE [facility] GLUCOSE 131(H) 70 - 99 mg/dL 07/12/2024 9:25 AM [facility] BUN 37(H) 8 - 26 mg/dL 07/12/2024 9:25 AM [facility] CREATININE, BLOOD 1.54(H) 0.70 - 1.30 mg/dL 07/12/2024 9:25 AM [facility] BUN/CREATININE RATIO 24(H) 12 - 20 ratio 07/12/2024 9:25 AM [facility] CALCIUM 8.5(L) 8.7 - 10.5 mg/dL 07/12/2024 9:25 AM [facility] GFR, ESTIMATED 49(L) >=60 07/12/2024 9:25 AM [facility] Comment: Creatinine Clearance is the preferred criteria for selecting drug dose adjustments in renally impaired patients. The GFR is provided as additional pertinent clinical information. GFR is reported in mL/min/1.73 sq m. Calculation based on the Chronic Kidney Disease Epidemiology Collaboration (CKD- EPI) equation refit without adjustment for race. GFR, EST. 55(L) >=60 025 9:25 AM OUTSIDE SALES ACCOUNT EXECUTIVE [facility] GFR, EST. NONAFRICAN 45(L) >=60 07/12/2024 9:25 AM [facility] Blood No Phlebotomy Charged / Unknown 07/12/2024 8:10 AM OUTSIDE SALES ACCOUNT EXECUTIVE 07/12/2024 9:01 AM OUTSIDE SALES ACCOUNT EXECUTIVE us Christ Russo MD CHEMISTRY ORDERABLES Final Resul t [facility] [address] [place] [address] documented in this encounter Visit Diagnoses Diagnosis Type 2 diabetes mellitus with foot ulcer (CODE) documented in this encounter Care Teams Child Care Specialist Relationship Specialty Start Date End Date Kayla Green MD [address] [facility] [address] [place] [address] [place] [id number] PCP - General Family Medicine 06/02/24 documented as of this encounter
--- OUTSIDE RECORDS SUMMARY | 2024-12-26 15:20 | XMS_ITS | Clinical Summary ---
Author Organization [facility] Address [address] [place] [address] Phone Care Team Providers Care Boat Hop Name Role Phone Kayla Green MD Primary Care Provide r Allergies Active Allergy Reactions Criticality Noted Date Comments Bacitracin Anaphylaxis 06/03/2024 Medications ASPIRIN EC LO-DOSE PO Take 81 mg by mouth daily. 7 Active allopurinol (ZYLOPRIM) 300 MG TabletIndicatio ns:Gout Take 300 mg by mouth daily. Indications: Gout Active amLODIPine (NORVASC) 10 MG TabletIndicatio ns:Hypertension Take 10 mg by mouth daily. Indications: High Blood Pressure Active Telmisartan-HCT Z 80-12.5 MG TabletIndicatio ns:Hypertension Take 1 Tablet by mouth daily. Indications: High Blood Pressure Active insulin lispro (HumaLOG) 100 UNIT/ML SolutionIndicat ions:Type 2 Diabetes Mellitus 15-20 Units by Subcutaneous route 3 times daily (before meals). Indications: Type 2 Diabetes Active Active Problems Problem Noted Date Diagnosed Date Osteomyelitis of right foot 03/16/2024 Cellulitis and abscess of foot 03/13/2024 Hx of gout 03/13/2024 PAD (peripheral artery disease) 03/13/2024 Morbid (severe) obesity due to excess calories 0 12/22/2023 Type 2 diabetes mellitus wit h stage 3a chronic kidney disease, with long-term current use of insulin 05/13/2022 History of colonic polyps 06/14/2019 Overview (05/02/2024): Added automatically from request for surgery [id number] Essential hypertension 05/22/2017 Hereditary spherocytosis 05/22/2017 Hyperuricemia 05/22/2017 Stage 3 chronic kidney disease 05/22/2017 Social History Tobacco Use Types Packs/Day Years Used Date Smoking Tobacco: Never Assessed Sex and Gender Information Value Date Recorded Sex Assigned at Not on file Legal Sex Male 2:42 PM CDT Gender Identity Not on file Sexual Orientation Not on file Last Filed Vital Signs Vital Sign Reading Time Taken Comments Blood Pressure 132/54 07/19/2024 7:58 AM SALES PROMOTION REPRESENTATIVE Pulse 64 07/19/2024 7:58 AM SALES PROMOTION REPRESENTATIVE Temperature 36.8 C (98.2 F) 07/19/2024 7:58 AM SALES PROMOTION REPRESENTATIVE Respiratory Rate 18 07/19/2024 7:58 AM SALES PROMOTION REPRESENTATIVE Oxygen Saturation 99% 07/19/2024 7:58 AM SALES PROMOTION REPRESENTATIVE Inhaled Oxygen Concentration - - Weight 118.8 kg (262 lb) 06/03/2024 11:16 AM SALES PROMOTION REPRESENTATIVE Height 190.5 cm (6' 3) 12/16/2016 4:00 PM CDT Body Mass Index 32.75 12/16/2016 4:00 PM CDT Plan of Treatment Health Maintenance Due Date Last Done Comments Diabetes: Eye Exam 1955 Diabetes: Foot Exam 1955 Hepatitis C Virus (HCV) Screening 1955 Cologuard 2002 Immunochemical Fecal Occult Blood 2002 Zoster Immunization (1 of 2) 2007 PSA Discussion 02/02/2012 Respiratory Syncytial Virus (RSV) Immunization (Adult) (1 - Risk 60-74 years 1-dose series) 2017 SARS-COV-2 Immunization (2 - season) 2024 01/28/2021 Diabetes: Hemoglobin A1c 01/01/2025 07/04/2024, 10/0 12/2023 Influenza Immunization (#1) 02/06/202503/08, 04/21/2022, 04/03/2021, Additional history exists Diabetes: Nephropathy Screening 06/23/2025 06/23/2024, 02/11/2017, 02/04/2017, Additional history exists Colonoscopy 07/21/2029 07/21/2019 Colorectal Cancer Screening 07/21/2029 TdaP Immunization Completed 03/30/2012 Pneumococcal Immunization (50+ years) Completed 03/23/2023, 04/25/2015, 06/08/2009, Additional history exists Hepatitis B Immunization Aged Out No longer eligible based on patient's age to complete this topic Human Papillomavirus (HPV) Immunization Aged Out No longer eligible based on patient's age to complete this topic Meningococcal Immunization (ACWY) Aged Out No longer eligible based on patient's age to complete this topic Rotavirus Immunization Aged Out No lo nger eligible based on patient's age to complete this topic Procedures Procedure Name Priority Date/Time Associated Diagnosis Comments CMP (COMPREHENSIVE METABOLIC PANEL) Routine 06/23/2024 1:01 PM SALES PROMOTION REPRESENTATIVE Hyperkalemia Stage 3 chronic kidney disease, unspecified whether stage 3a or 3b CKD (HCC) from Last 3 Months or Most Recently Relevant to Health Maintenance Results * (ABNORMAL) CMP (COMPREHENSIVE METABOLIC PANEL) (06/23/2024 1:01 PM SALES PROMOTION REPRESENTATIVE) SODIUM 142 136 - 145 mmol/L 06/23/2024 3:23 PM [facility] POTASSIUM 5.1 3.5 - 5.1 mmol/L 06/23/2024 3:23 PM [facility] CHLORIDE 112(H) 98 - 107 mmol/L 06/23/2024 3:23 PM [facility] CO2, VENOUS 26 22 - 30 mmol/L 06/23/2024 3:23 PM [facility] ANION GAP 9.1 <18.0 mmol/L 06/23/2024 3:23 PM [facility] GLUCOSE 123(H) 70 - 99 mg/dL 06/23/2024 3:23 PM [facility] BUN 42(H) 8 - 26 mg/dL 06/23/2024 3:23 PM [facility] CREATININE, BLOOD 1.44(H) 0.70 - 1.30 mg/dL 06/23/2024 3:23 PM [facility] BUN/CREATININE RATIO 29(H) 12 - 20 ratio 06/23/2024 3:23 PM [facility] TOTAL PROTEIN 7.5 6.0 - 8.0 g/dL 06/23/2024 3:23 PM [facility] ALBUMIN 4.1 3.5 - 5.0 g/dL 06/23/2024 3:23 PM [facility] A/G RATIO 1.2 1.0 - 2.2 06/23/2024 3:23 PM [facility] CALCIUM 9.1 8.7 - 10.5 mg/dL 06/23/2024 3:23 PM [facility] T BILI 2.5(H) 0.2 - 1.2 mg/dL 06/23/2024 3:23 PM [facility] SGOT (AST) 21 6 - 42 U/L 06/23/2024 3:23 PM [facility] SGPT (ALT) 15 6 - 55 U/L 06/23/2024 3:23 PM [facility] ALKALINE PHOSPHATASE 105 40 - 150 U/L 06/23/2024 3:23 PM [facility] IS THE PATIENT REQUIRED TO BE FASTING? No 06/23/2024 3:23 PM [facility] GFR, ESTIMATED 53(L) >=60 06/23/2024 3:23 PM [facility] Comment: Creatinine Clearance is the preferred criteria for selecting drug dose adjustments in renally impaired patients. The GFR is provided as additional pertinent clinical information. GFR is reported in mL/min/1.73 sq m. Calculation based on the Chronic Kidney Disease Epidemiology Collaboration (CKD- EPI) equation refit without adjustment for race. GFR, EST. 59(L) >=60 025 3:23 PM [facility] GFR, EST. NONAFRICAN 49(L) >=60 06/23/2024 3:23 PM [facility] Blood Venipuncture / Unknown 06/23/2024 1:01 PM SALES PROMOTION REPRESENTATIVE 06/23/2024 1:32 PM SALES PROMOTION REPRESENTATIVE us Christ Russo MD CHEMISTRY ORDERABLES Final Resul t [facility] [facility] [place] [address] from Last 3 Months or Most Recently Relevant to Health Maintenance Insurance MEDICARE [facility] Advance Directives * Full Code (Latest Code Status on File) Date Activated Date Inactivated Comments 12/22/2016 8:40 AM Care Teams Boat Hop Relationship Specialty Start Date End Date Kayla Green MD [address] [address] [place] [address] PCP - General Family Medicine 06/02/24
--- OUTSIDE RECORDS SUMMARY | 2024-12-26 15:20 | XMS_ITS | Referral Summary ---
Author Organization [facility] Address [address] [place] [address] Care Team Providers Care Director Of Quantitative Research Name Role Phone Kayla Green MD Primary Care Provide r Encounters Date Type Department Care Team Description 12/20/2024 ACO Quality [address] [id number] Radha Randall 10/11/2024 ACO Clinical Pharmacist [address] [id number] Janina Raman RPh 10/06/2024 11:30 AM CDT Office Visit [facility] at [address] [phone] Tonya Spence, MAUREEN Type 2 diabetes mellitus with stage 3a chronic kidney disease, with long-term current use of insulin (HCC) (Primary Dx); Type 2 diabetes mellitus with hyperlipidemia (HCC); Essential hypertension; Class 1 obesity due to excess calories with serious comorbidity and body mass index (BMI) of 32.0 to 32.9 in adult 10/04/2024 Telephone [facility] Primary Care at [address] [place] [address] Kayla Green MD No Call Made (Clarifying statin orders) 10/04/2024 ACO Clinical Pharmacist [address] [id number] Janina Raman [facility] 09/26/2024 Orders Only [facility] Primary Care at [address] [phone] Kayla Green MD Elevated bilirubin (Primary Dx) 09/26/2024 Results Follow-Up [facility] at [address] [phone] Kayla Green MD Hepatic function panel, Potassium 09/26/2024 10:45 AM CDT Lab [address] [phone] Elevated liver enzymes; Hyperkalemia 09/26/2024 11:30 AM CDT Office Visit [facility] Care at [address] [phone] Kayla Green MD Essential hypertension (Primary Dx); Type 2 diabetes mellitus with stage 3a chronic kidney disease, with long-term current use of insulin (HCC); Class 1 obesity due to excess calories with serious comorbidity and body mass index (BMI) of 32.0 to 32.9 in adult; Elevated bilirubin; Hyperkalemia from Last 3 Months Allergies Active Allergy Reactions Criticality Noted Date Comments Bacitracin Anaphylaxis High Mqovi-Xobid-Ptpwbqw-Pra moxine Other (See comments) Low Reaction: Rash, Medications allopurinoL (ZYLOPRIM) 300 mg tablet TAKE 1 TABLET(300 MG) BY MOUTH DAILY 90 tablet 4 01/04/2024 Active telmisartan-hyd rochlorothiazid (MICARDIS HCT) 80-12.5 mg per tablet Take 1 tablet by mouth daily 90 tablet 3 01/26/2024 Active blood glucose diagnostic strip Used to monitor blood glucose 3 times daily 300 each 3 06/17/2024 Active insulin glargine (LANTUS) 100 unit/mL (3 mL) pen for injection Inject 32 Units under the skin nightly E11.9 30 mL 4 07/04/2024 Active insulin lispro (HumaLOG) 100 unit/mL pen for injectionIndica tions:type 2 diabetes mellitus Inject 30 Units under the skin 3 (three) times a day before meals Total daily dose - 90 units E11.65 90 mL 4 07/04/2024 Active lancing device misc 1 Device 3 (three) times a day before meals E11.9 1 each 1 10/06/2024 Active amLODIPine (NORVASC) 10 mg tablet TAKE 1 TABLET(10 MG) BY MOUTH DAILY 90 tablet 1 11/01/2024 Active Active Problems Problem Noted Date Diagnosed Date Elevated bilirubin 09/26/2024 Assessment & Plan (09/26/2024 12:36 PM CDT): New concern 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 and recent infection Asx, no signs of jaundice Will repeat labs in 4 months and if no improvement will get an US of the liver at that time Red flags discussed F/u in 4 months Abnormal ankle brachial index (PATEL) 03/21/2024 Osteomyelitis of right foot 03/16/2024 Cellulitis 03/14/2024 RASHEL (acute kidney injury) 03/13/2024 Assessment & Plan (03/13/2024 9:53 PM CDT): Cellulitis and abscess of foot 03/13/2024 Assessment & Plan (05/18/2024 2:47 PM PRODUCT LINE MANAGER): Hospitalized in March 2024 S/P completion of antibiotics via PICC at [facility] Repeat labs today: CBC, CMP, CRP Assessment & Plan (03/13/2024 9:46 PM CDT): Patient presents with history of foot wound for 6 weeks duration; followed by Podiatry, Dr. Day. Three days ago, noticed redness and swelling of the leg and foot; patient unsure exactly how long it has been there since he reports he wears his compression stockings most of the time. He did not feel any pain because of his neuropathy. WBCs 17.7 on admission and confirmed source of infection. Unclear if his infection may have caused RASHEL/possible dehydration; he reports that he has not had an appetite for the past couple of days. He does meet severe Sepsis criteria. - continue IV vancomycin and cefepime - MRI to rule out osteomyelitis of the right foot - podiatry is consulted; appreciate recs Hx of gout 03/13/2024 Assessment & Plan (03/13/2024 9:55 PM CDT): Known hx, chronic, not currently in exacerbation/acute episode. - Continue maintenance therapy allopurinol Severe sepsis with acute organ dysfunction 03/13 Assessment & Plan (03/13/2024 10:01 PM CDT): PAD (peripheral artery disease) 03/13/2024 Upper respiratory tract infection 06/15/2023 Assessment & Plan (06/30/2023 1:13 PM PRODUCT LINE MANAGER): Improving Recommend fluids, rest, humidification if needed. He was instructed to call back if symptoms do not improved in a week, or if worsening ones arise. Education provided. Assessment & Plan (06/15/2023 12:19 PM PRODUCT LINE MANAGER): Acute problem- this is a new problem- onset x 5 days, this is more than likely related to common cold, however will treat empirically due to low grade fever Ordered azithromycin 250 mg daily x 7 days- low dose ordered due to patient decreased kidney function Ordered fluticasone 50 mcg- 2 sprays each nostril nightly No smoking around patient, no animals in bedroom, keep windows closed, no hanging clothes on the line Take zyrtec or claritin in the am Saline rinse in the am Saline rinse about 15 min before bed Recommend staying on the above treatment from the beginning of August to end of October Come off of meds if possible during the summer Then restart on meds mid to late January until Thanksgiving Come off of meds if possible during the winter Stay hydrated- drink water- room temperature preferred Continue to monitor Cough 06/15/2023 Assessment & Plan (06/15/2023 12:16 PM PRODUCT LINE MANAGER): Acute problem- this is a new problem-onset x 5 days Poorly controlled with current regimen Ordered covid, flu a/b POC- negative results Discussed viral nature of illness, treat symptomatically Tylenol/ibuprofen as needed Increase fluids, rest and handwashing Warm saltwater gargles Hot water/hot tea with honey 1 teaspoon of honey every 4 hours Saline rinses to nose at least twice daily No sharing cups or utensils Cool mist humidifier May use vicks vaporub on chest and feet as needed to help with cough Replace toothbrush in 5 days Wash pillow and bed linens Continue to monitor Follow up with pcp as scheduled-sooner prn Class 1 obesity due to exces s calories with serious comorbidity and body mass index (BMI) of 32.0 to 32.9 in adult 03/31/2023 Assessment & Plan (09/26/2024 12:37 PM CDT): He was counseled on the importance of maintaining a healthy weight and the risks of obesity. Weight loss recommended. Assessment & Plan (05/19/2024 9:28 AM PRODUCT LINE MANAGER): Chronic, stable, not at goal BMI less than 30. Wt Readings from Last 3 Encounters: 05/18/24 122.9 kg (271 lb) 04/14/24 124.7 kg (275 lb) 03/14/24 125 kg (275 lb 9.2 oz) Body mass index is 33.87 kg/m . BMI plan includes nutrition and exercise changes, advanced as tolerated with wound healing to R foot. Assessment & Plan (01/26/2024 2:02 PM CDT): He was counseled on the importance of maintaining a healthy weight and the risks of obesity. Weight loss recommended. Assessment & Plan (12/16/2023 2:56 PM CDT): This is a chronic condition which continues, but stable 1 lbs. Weight gain since last office visit Encouraged healthy eating which includes a low carb diet. Avoiding processed foods, sweets and fried foods. Encouraged 30 minutes of walking at least 5 days per week Discussed that exercise can be broken down into small sessions- for example 2- 15 minutes sessions or 3- 10 minutes sessions. Assessment & Plan (08/04/2023 1:05 PM PRODUCT LINE MANAGER): This is a chronic condition which is worsening 5 lb weight gain since last office visit He is much more active in the summer [place] He exercises by walking around the farm Encouraged healthy eating and exercise Assessment & Plan (03/31/2023 2:57 PM CDT): This is a chronic condition which continues 2 lb weight increase since last office visit Encouraged healthy eating and exercise Hyperkalemia 03/23/2023 Assessment & Plan (09/26/2024 12:35 PM CDT): Repeat potassium improved to 5.0 Continue low potassium diet Cont to monitor May conider stopping telmisartan in the future Assessment & Plan (03/23/2023 1:05 PM CDT): Repeat potassium improved to 5.1 He stopped all medications on his own Recommend restarting the amlodipine and telmisartan and rechecking in 1 week If still elevated will consider stopping the telmisartan Cellulitis of fifth toe, left 10/25/2022 Acute diastolic congestive heart failure 023 Swelling 09/03/2022 Dyspnea 09/03/2022 Leg swelling 07/14/2022 Assessment & Plan (07/14/2022 12:19 PM PRODUCT LINE MANAGER): CMP showed slight worsening kidney function Increased telmisartan for better bp control Will get an echo Referral to cardiology as requested by patient F/u in 3 months Type 2 diabetes mellitus wit h stage 3a chronic kidney disease, with long-term current use of insulin 05/13/2022 Assessment & Plan (09/22/2024 9:23 PM CDT): The patient was counseled on a heart-healthy, diabetic-friendly diet, as well as life-style modification. Education provided on the diagnosis and risks of the disease. We will continue to monitor routine labs. Additionally, He was counseled on routine diabetic eye exams, foot exams, and other preventive care. Most recent A1c on file: Lab Results Component Value Date HGBA1C 5.2 07/04/2024 Continue following with endo for management Continue statin and ARB F/u in 3 months Assessment & Plan (05/19/2024 2:11 PM PRODUCT LINE MANAGER): Follows with Endocrinology: next OV 06/2024 Continue Humalog with meals: 30 units Novolog TID Consider CGM if accurate monitoring of glucose levels with hereditary condition. Explained benefit of statin in T2DM; pt declines at this time. Avoid nephrotoxic meds and continue renal dosing of medications. Discussed recent lab with return of kidney function to baseline; pending repeat labs at this time as ordered by PCP Assessment & Plan (03/13/2024 9:51 PM CDT): Known history, chronic, likely uncontrolled. Per home med list, 60 units glargine nightly and 30 units lispro t.i.d. with meals. Reports has not been compliant with his insulin in the past few days because of poor appetite. - 31 units glargine nightly - 10 units lispro + sliding scale for correction - check HbA1c on morning labs Assessment & Plan (01/26/2024 2:01 PM CDT): The patient was counseled on a heart-healthy, diabetic-friendly diet, as well as life-style modification. Education provided on the diagnosis and risks of the disease. We will continue to monitor routine labs. Additionally, He was counseled on routine diabetic eye exams, foot exams, and other preventive care. Most recent A1c on file: Lab Results Component Value Date HGBA1C 5.7 12/16/2023 Continue following with endo for management Continue statin and ARB F/u in 3 months Assessment & Plan (12/21/2023 4:42 PM CDT): The patient was counseled on a heart-healthy, diabetic-friendly diet, as well as life-style modification. Education provided on the diagnosis and risks of the disease. We will continue to monitor routine labs. Additionally, He was counseled on routine diabetic eye exams, foot exams, and other preventive care. Most recent A1c on file: Lab Results Component Value Date HGBA1C 5.7 12/16/2023 Continue following with endo for management Continue statin and ARB F/u in 3 months Assessment & Plan (12/16/2023 2:52 PM CDT): This is a chronic condition which is at goal . Goal is less than 7%. A!C may be inaccurate due to anemia. Personally reviewed most recent A1c - Lab Results Component Value Date HGBA1C 5.7 12/16/2023 Personally reviewed POC blood sugar- at goal of 80-180 Lab Results Component Value Date POCGLU 154 12/16/2023 Medication- continue Lantus 38 units daily , lispro 15-20 units prior to meals. He stopped Jardiance 25 mg p.o. daily due to cost of $40 and concerns over the effect of drying out his kidneys. He use a 1:3 carb to insulin ratio and uses a 1:7 correction when deciding the amount of insulin to use. Also, he adjust his own basal insulin and is not specific on what his dosing is. Somewhere between 45-55 units. Monitor blood sugar 3 times a day. Declines offer of cgm. Encouraged annual eye exam. Monofilament foot exam completed. Loss of protective senses Personally reviewed CMP eGFR- 42 Kidney function-not at goal Urine microalbumin/creatinine ratio - elevated. Goal is <30 Continue amlodipine, metopropolol, telmisartan Assessment & Plan (08/04/2023 1:04 PM PRODUCT LINE MANAGER): This is a chronic condition which is at goal of less than 7%. Most likely inaccurate due to his anemia Personally reviewed most recent A1c - Lab Results Component Value Date HGBA1C 6.2 08/04/2023 Personally reviewed POC blood sugar- not at goal 80-180 Lab Results Component Value Date POCGLU 216 08/04/2023 Medication- continue Lantus 38 units daily, lispro 15-20 units prior to meals. Add Jardiance 25 mg p.o. daily He use a 1:3 carb to insulin ratio and uses a 1:7 correction when deciding the amount of insulin to use. Monitor blood sugar 3 times a day. Encouraged annual eye exam. Monofilament foot exam completed. loss of protective senses. Personally reviewed CMP eGFR- 42 Kidney function- abnormal . Jardiance added due to declining renal function Urine microalbumin/creatinine ratio - at goal <30 treated with telmisartan, amlodipine B/P today- at goal of <140/90. continue telmisartan, amlodipine Personally reviewed lipid panel. at Goal of less than 70. Continue rosuvastatin Assessment & Plan (06/30/2023 11:54 AM PRODUCT LINE MANAGER): The patient was counseled on a heart-healthy, diabetic-friendly diet, as well as life-style modification. Education provided on the diagnosis and risks of the disease. We will continue to monitor routine labs. Additionally, He was counseled on routine diabetic eye exams, foot exams, and other preventive care. Most recent A1c on file: Lab Results Component Value Date HGBA1C 5.9 03/31/2023 Continue following with endo for management Continue statin and ARB F/u in 3 months Assessment & Plan (03/31/2023 2:55 PM CDT): This is a chronic condition which is at goal of less than 7% but not accurate due to his anemia. Personally reviewed most recent A1c - Lab Results Component Value Date HGBA1C 5.9 03/31/2023 Personally reviewed POC blood sugar- at goal 80-180 Lab Results Component Value Date POCGLU 126 03/31/2023 Medication- continue Lantus 38 units daily, lispro 15-20 units prior to meals. He use a 1:3 carb to insulin ratio and uses a 1:7 correction when deciding the amount of insulin to use. Monitor blood sugar 3 times a day. Encouraged annual eye exam. Monofilament foot exam completed. loss of protective senses. Personally reviewed CMP eGFR- 42 Kidney function- abnormal Urine microalbumin/creatinine ratio - not at goal <30 treated with amlodipine, telmisartan B/P today- at goal of <140/90. continue amlodipine, tell him a saw Personally reviewed lipid panel. at Goal of less than 70. Continue rosuvastatin Assessment & Plan (03/18/2023 1:57 PM CDT): The patient was counseled on a heart-healthy, diabetic-friendly diet, as well as life-style modification. Education provided on the diagnosis and risks of the disease. We will continue to monitor routine labs. Additionally, He was counseled on routine diabetic eye exams, foot exams, and other preventive care. Most recent A1c on file: Lab Results Component Value Date HGBA1C 5.6 12/24/2022 Continue following with endo for management Continue statin and ARB F/u in 3 months Assessment & Plan (12/24/2022 12:55 PM CDT): This is a chronic condition which is at goal of less than 7%. Personally reviewed most recent A1c - Lab Results Component Value Date HGBA1C 5.6 12/24/2022 Personally reviewed POC blood sugar- at goal 80-180 Lab Results Component Value Date POCGLU 107 12/24/2022 Medication- continue Lantus 38 units daily, lispro 15-20 units prior to meals. He use a 1:3 carb to insulin ratio and uses a 1:7 correction when deciding the amount of insulin to use. Monitor blood sugar 3 times a day. We discussed adding a continuous glucose monitor. He wants to wait until he has a cell phone update and then he will let me know and we will proceed with obtaining a sensor. Encouraged annual eye exam. Monofilament foot exam completed. loss of protective senses. Toe amputations noted. Sees Dr. Day for podiatry Currently under treatment for left 5th toe wound. Possible osteo Personally reviewed CMP eGFR- 51 Kidney function- abnormal Urine microalbumin/creatinine ratio - not at goal <30 treated with telmisartan, amlodipine, metoprolol B/P today- not at goal of <140/90. continue telmisartan, amlodipine, metoprolol Personally reviewed lipid panel. at Goal of less than 70. Continue rosuvastatin Assessment & Plan (09/18/2022 4:51 PM CDT): This is a chronic condition which is controlled and at goal of less than 7%. Personally reviewed most recent A1c - Lab Results Component Value Date HGBA1C 5.9 09/18/2022 Personally reviewed POC blood sugar- Lab Results Component Value Date POCGLU 226 09/18/2022 not at goal 80-180 Medication- change Lantus 38 units daily, continue lispro 20-30 units prior to meals 3x/day Monitor blood sugar 3times a day. Discussed adding a cgm. Will need to upgrade phone and then will proceed with a sensor Encouraged annual eye exam. Monofilament foot exam completed. protective senses intact Urine microalbumin/creatinine ratio - not at goal <30 treated with telmisartan, and amlodipine. Personally reviewed CMP GFR- 54 Kidney function- abnormal B/P today- not at goal of <140/90. continue telmisartan and amlodipine. He is seeing Dr Taylor for his blood pressure. He was prescribed amlodipine but has not begun taking it yet. Encouraged to take amlodipine. Personally reviewed lipid panel. at Goal of less than 70. Continue rosuvastatin Assessment & Plan (05/13/2022 4:52 PM PRODUCT LINE MANAGER): This is a chronic condition which is controlled and at goal of less than 7%. Personally reviewed most recent A1c - Lab Results Component Value Date HGBA1C 6.2 05/13/2022 Personally reviewed POC blood sugar- Lab Results Component Value Date POCGLU 152 05/13/2022 not at goal 80-180 Medication- Continue Lantus 60 units daily, continue lispro 20 units prior to meals 3x/day Monitor blood sugar 3times a day. Discussed adding a cgm. Will research and decide which product he would like to proceed with. Encouraged annual eye exam. Monofilament foot exam completed. protective senses intact Urine microalbumin/creatinine ratio - not at goal <30 treated with telimisartan. Personally reviewed CMP GFR- 54 Kidney function- abnormal B/P today- not at goal of <140/90. continue telmisartan. He is seeing Dr Glover in 2 weeks for follow up on blood pressure. Personally reviewed lipid panel. at Goal of less than 70. Continue rosuvastatin Encounter for wellness examination 02/20/2022 Assessment & Plan (03/23/2023 1:06 PM CDT): Labs reviewed Colonoscopy: up to date F/u in 1 year for annual Assessment & Plan (02/20/2022 12:54 PM CDT): Labs reviewed Colonoscopy: up to date F/u in 1 year for annual History of colonic polyps 06/14/2019 Overview (06/14/2019): Added automatically from request for surgery [id number] Type 2 diabetes mellitus with hyperlipidemia Assessment & Plan (12/16/2023 2:52 PM CDT): This is a chronic condition which is at goal . Goal is LDL less than 70 Continue rosuvastatin Encouraged to eat healthy, include fresh fruits and vegetables daily and avoid eating fried foods more than once per week. Encouraged to take medications as prescribed. Assessment & Plan (08/04/2023 1:04 PM PRODUCT LINE MANAGER): This is a chronic condition which is at goal of LDL less than 70 Continue rosuvastatin Encouraged to eat healthy, include fresh fruits and vegetables daily and avoid eating fried foods more than once per week. Encouraged to take medications as prescribed. Assessment & Plan (03/31/2023 2:55 PM CDT): This is a chronic condition which is at goal of LDL less than 70 Continue rosuvastatin Encouraged to eat healthy, include fresh fruits and vegetables daily and avoid eating fried foods more than once per week. Encouraged to take medications as prescribed. Assessment & Plan (12/24/2022 12:56 PM CDT): This is a chronic condition which is at goal of LDL less than 70 Continue rosuvastatin Encouraged to eat healthy, include fresh fruits and vegetables daily and avoid eating fried foods more than once per week. Encouraged to take medications as prescribed. Assessment & Plan (09/18/2022 4:52 PM CDT): This is a chronic condition which is at goal of LDL less than 70 Continue rosuvastatin. Encouraged to eat healthy, include fresh fruits and vegetables daily and avoid eating fried foods more than once per week. Encouraged to take medications as prescribed. Assessment & Plan (05/13/2022 4:53 PM PRODUCT LINE MANAGER): This is a chronic condition which is at goal of LDL less than 70 Continue rosuvastatin. Encouraged to eat healthy, include fresh fruits and vegetables daily and avoid eating fried foods more than once per week. Encouraged to take medications as prescribed. Assessment & Plan (02/20/2022 12:53 PM CDT): The patient was counseled on a heart-healthy, diabetic-friendly diet, as well as life-style modification. Education provided on the diagnosis and risks of the disease. We will continue to monitor routine labs. Additionally, He was counseled on routine diabetic eye exams, foot exams, and other preventive care. Take 40 units of basal insulin and continue with sliding scale Referral to research laboratory manager Albumin cr ratio of 60 F/u in 3 months Assessment & Plan (12/19/2021 1:02 PM CDT): The patient was counseled on a heart-healthy, diabetic-friendly diet, as well as life-style modification. Education provided on the diagnosis and risks of the disease. We will continue to monitor routine labs. Additionally, He was counseled on routine diabetic eye exams, foot exams, and other preventive care. Most recent A1c on file:Unable to calculate because of hereditary spherocytosis. Use fructosamine Recommend endocrinology referral. Will consider at next office visit He will be switching to medicare soon and will be looking into the [employer] lexie and consider going back to endocrine then. Continue regimen of lispro and restart the levemir. Micro/Cr ur ratio ordered F/u in 3 months Hyperuricemia 05/22/2017 Assessment & Plan (03/23/2023 1:06 PM CDT): stable continue allopurinol 300mg daily Assessment & Plan (07/14/2022 12:20 PM PRODUCT LINE MANAGER): Uric acid elevated Restart allopurinol 300mg daily and recheck Uric acid in 3 months Hereditary spherocytosis 05/22/2017 Assessment & Plan (03/23/2023 1:05 PM CDT): stable Essential hypertension 05/22/2017 Assessment & Plan (09/22/2024 9:22 PM CDT): Bp in the office today BP Readings from Last 1 Encounters: 07/04/24 138/64 continue amlodipine 10mg daily Telmisartan hctz Recommend DASH diet, heart-healthy lifestyle, exercise. Discussed the risks of hypertension. Assessment & Plan (05/19/2024 2:08 PM PRODUCT LINE MANAGER): BP Readings from Last 3 Encounters: 05/18/24 140/62 03/25/24 155/62 01/26/24 132/62 Chronic, stable, at goal. Continue amlodipine 10mg, telmisartan-HCTZ 80-12.5mg as Rx above. Consider taking amlodipine at nighttime and telmisartan-HCTZ in the morning. Explained to patient the benefit telmisartan on protecting his kidneys with concomitant type 2 diabetes Recommend heart-healthy diet and regular exercise. Assessment & Plan (03/13/2024 9:54 PM CDT): Known hx, chronic, well controlled. Pt presenting with RASHEL on CKD; will hold nephrotoxic anti-hypertensives. - hold HCTZ and ARBs - continue amlodipine 10 mg - continue metoprolol 25 mg Assessment & Plan (01/26/2024 2:01 PM CDT): Bp in the office today BP Readings from Last 1 Encounters: 01/26/24 132/62 continue amlodipine 10mg daily cont metoprolol 25mg daily Telmisartan hctz Recommend DASH diet, heart-healthy lifestyle, exercise. Discussed the risks of hypertension. F/u in 3 months at annual Assessment & Plan (12/22/2023 10:03 AM CDT): Bp in the office today BP Readings from Last 1 Encounters: 12/22/23 144/52 continue amlodipine 10mg daily start telmisartan hctz 80-12.5mg daily Will hold this medication which can contribute to the elevated potassium Recommend DASH diet, heart-healthy lifestyle, exercise. Discussed the risks of hypertension. F/u in 1 month Assessment & Plan (12/16/2023 2:55 PM CDT): This is a chronic condition which is not at goal. Blood pressure 172/78 upon arrival to the office not at goal. Blood pressure 144/66 after rest still not at goal Goal is less than 140/90 Personally reviewed labs. Continue amlodipine, metoprolol, telmisartan Encouraged to monitor weight and B/P at home. Explained correct way to take blood pressure. - After 5 minutes of sitting calmly with arm supported. Encouraged to void caffeine and excessive alcohol consumption as this will elevate B/P Encouraged to take medications as prescribed. Message Dr. Glover to let her know of blood pressure finding Assessment & Plan (08/04/2023 1:05 PM PRODUCT LINE MANAGER): This is a chronic condition which is at goal of less than 140/90 Personally reviewed labs. Continue telmisartan, amlodipine Encouraged to monitor weight and B/P at home Encouraged to take medications as prescribed. Assessment & Plan (06/30/2023 1:11 PM PRODUCT LINE MANAGER): Bp in the office today BP Readings from Last 1 Encounters: 06/30/23 130/60 continue telmisartan 80mg daily amlodipine 10mg daily Will hold this medication which can contribute to the elevated potassium Recommend DASH diet, heart-healthy lifestyle, exercise. Discussed the risks of hypertension. F/u in 6 months Assessment & Plan (03/31/2023 2:56 PM CDT): This is a chronic condition which is at goal of less than 140/90 Personally reviewed labs. Continue telmisartan, amlodipine Encouraged to monitor weight and B/P at home Encouraged to take medications as prescribed. Assessment & Plan (03/23/2023 1:03 PM CDT): Bp in the office today BP Readings from Last 1 Encounters: 03/23/23 146/74 continue telmisartan 80mg daily amlodipine 10mg daily Will hold this medication which can contribute to the elevated potassium Recommend DASH diet, heart-healthy lifestyle, exercise. Discussed the risks of hypertension. F/u in 3 months Assessment & Plan (12/16/2022 12:02 PM CDT): Bp in the office today BP Readings from Last 1 Encounters: 12/16/22 160/80 continue telmisartan 80mg daily amlodipine 10mg daily and increase metoprolol to 25mg daily Recommend DASH diet, heart-healthy lifestyle, exercise. Discussed the risks of hypertension. F/u in 3 months Assessment & Plan (11/17/2022 10:01 AM CDT): Bp in the office today BP Readings from Last 1 Encounters: 10/25/22 149/56 continue telmisartan 80mg daily and continue amlodipine 10mg daily add metoprolol 12.5mg daily Recommend DASH diet, heart-healthy lifestyle, exercise. Discussed the risks of hypertension. F/u in 1 months Assessment & Plan (10/15/2022 10:59 AM CDT): Bp in the office today BP Readings from Last 1 Encounters: 09/18/22 160/68 continue telmisartan 80mg daily and increase amlodipine to 10mg daily Recommend DASH diet, heart-healthy lifestyle, exercise. Discussed the risks of hypertension. F/u in 3 months Assessment & Plan (09/18/2022 4:52 PM CDT): This is a chronic condition which is not at goal of less than 140/90- even after 5 minutes of rest Personally reviewed labs. Continue telmisartan and amlodipine He saw Dr. Taylor - amlodipine was started but he has not began taking it yet. Encouraged to take amlodipine as prescribed. Encouraged to void caffeine and excessive alcohol consumption as this will elevate B/P Encouraged to monitor weight and B/P at home Explained correct way to take blood pressure. - After 5 minutes of sitting calmly with arm supported. Encouraged to take medications as prescribed. Assessment & Plan (07/14/2022 11:28 AM PRODUCT LINE MANAGER): Bp in the office today BP Readings from Last 1 Encounters: 07/14/22 150/80 Increase telmisartan to 80mg daily Recommend DASH diet, heart-healthy lifestyle, exercise. Discussed the risks of hypertension. F/u in 3 months Assessment & Plan (05/13/2022 4:53 PM PRODUCT LINE MANAGER): This is a chronic condition which is not at goal of less than 140/90 Personally reviewed labs. Continue telmisartan. Encouraged to void caffeine and excessive alcohol consumption as this will elevate B/P Encouraged to monitor weight and B/P at home Explained correct way to take blood pressure. - After 5 minutes of sitting calmly with arm supported. Encouraged to take medications as prescribed. Follow with Dr. Glover in 2 weeks as scheduled. Assessment & Plan (02/20/2022 12:52 PM CDT): Bp in the office today BP Readings from Last 1 Encounters: 02/20/22 152/80 restart tamisartan 40mg daily Recommend DASH diet, heart-healthy lifestyle, exercise. Discussed the risks of hypertension. F/u in 3 months Assessment & Plan (12/19/2021 9:54 AM CDT): Bp in the office today BP Readings from Last 1 Encounters: 07/18/21 132/70 Continue current regimen of telmisartan 40mg daily Recommend DASH diet, heart-healthy lifestyle, exercise. Discussed the risks of hypertension. Stage 3 chronic kidney disease 05/22/2017 Assessment & Plan (03/13/2024 9:53 PM CDT): Known hx, chronic. On admission, Cr 3.24 - baseline likely closer to 1.6-1.7; unclear if this is due to dehydration 2/2 sepsis at this time or hypotension 2/2 sepsis. Pt reports decreased appetite for the past few days. Received 0.5L in ED. - Hold nephrotoxic meds - mIVF 100 ml/hr NS 0.9% - consider nephro consult if no improvements Resolved Problems Problem Noted Date Diagnosed Date Resolved Date Class 1 obesity with serious comorbidity and body mass index (BMI) of 34.0 to 34.9 in adult 12/22/2023 07/04/2024 Proteus infection 04/02/2017 05/22/2017 Type 2 diabetes mellitus 10/22/2013 Overview (09/10/2016): DMII WO CMP UNCNTRLD Immunizations Immunization Administration Dates Next Due Influenza, Quadrivalent, Hig h Dose, Preservative Free, Intrr 03/23/2023,04/21/2022 Influenza, Quadrivalent, Spl it, Preservative Free, Intradermal 04/30/2016,04/25/2015 Influenza, Quadrivalent, Spl it, Preservative Free, Intramuscular 04/03/2021,04/12/2019,03/18/2018 Influenza, Split 04/05/2013, 2,03/24/2011,03/22,06/08/2009 Influenza, Trivalent, High D ose, Split, Preservative Free, Intramuscular 03/25/2024(Deferred: Patient Refused) Influenza, Trivalent, IM (MDV) 03/14/2009 Influenza, Trivalent, Recomb inant, Egg Free, Preservative Free, Antibiotic Free, IM (FLUBLOK) 04/07/2014,04/07/2014 Influenza, Unspecified 05/18/2024(Deferr ed: Patient Refused),03/27/2024(Deferred: Patient Refused) PPD TEST 03/26/2024 Pfizer SARS-CoV-2 Monovalent Vaccination (12+ Yrs) PURPLE 01/09/2021(Deferred: Patient Refused) Pneumococcal Conjugate PCV 13 04/25/2015 Pneumococcal Conjugate Pcv20 03/23/2023 Pneumococcal Polysaccharide PPV23 06/08/2009,12/2008 TD Preservative Free 06/08/2004 Tdap 03/30/2012 Social History Tobacco Use Types Packs/Day Years Used Date Smoking Tobacco: Never Passive Smoke Exposure: Never Smokeless Tobacco: Never Alcohol Use Standard Drinks/Week Comments No 0 (1 standard drink = 0.6 oz pur e alcohol) AUDIT-C Answer Date Recorded Q1: How often do you have a drink containing alc ohol? 2-4 times a month 05/18/2024 Q2: How many drinks containi ng alcohol do you have on a typical day when you are drinking? 1 or 2 05/18/2024 Q3: How often do you have si x or more drinks on one occasion? Never 05/18/2024 PHQ-2 Answer Date Recorded PHQ-2 Total Score (If total score is 3 or more points, staff should administer the PHQ-9) 0 09/26/2024 Personal Safety Answer Date Recorded Have you ever been in or are you currently in a harmful physical or emotional relationship or is someone making you feel afraid or unsafe? Denies 03/13/2024 Sex and Gender Information Value Date Recorded Sex Assigned at Not on file Legal Sex Male 11:53 PM PRODUCT LINE MANAGER Gender Identity Not on file Sexual Orientation Not on file Last Filed Vital Signs Vital Sign Reading Time Taken Comments Blood Pressure 138/50 10/06/2024 11:50 AM CDT Pulse 73 09/26/2024 11:35 AM CDT Temperature 36.4 C (97.5 F) 09/26/2024 11:35 AM CDT Respiratory Rate 18 09/26/2024 11:3 5 AM CDT Oxygen Saturation 98% 09/26/2024 11: 35 AM CDT Inhaled Oxygen Concentration - - Weight 125.1 kg (275 lb 12.8 oz) 2024 11:36 AM CDT Height 190.5 cm (6' 3) 10/06/2024 11:3 6 AM CDT Body Mass Index 34.47 10/06/2024 11:36 AM CDT Plan of Treatment Upcoming Encounters Date Type Department Care Team (Late st Contact Info) Description 02/07/2025 11:00 AM CDT Office Visit [facility] at [address] [place] [address] Tonya Spence, HYDROGENATION OPERATOR [address] [facility] [address] [place] [address] Medical Devices Implanted Type Area Liquid Fertilizer Servicer Device Identifier Shelf Expiration Date Model / Serial / Lot Graft Soft Tissue Epifix Purion 8sq Cm Dhacm Allograft - [id number] Implanted:Qty: 1 on 06/19/2017 by Dnoavan Day DPM at [facility] Left: Foot [employer] 02/06/2022 -[id number] / / [employer] Angio-Seal Vip 6fr Closere Device [id number] - [id number] Implanted:Qty: 1 on 03/22/2024 by Jessee Rubin MD at [facility] [employer] 08/27/2024 [id number] / / [id number] Procedures Procedure Name Priority Date/Time Associated Diagnosis Comments POCT HEMOGLOBIN A1C Routine 10/06/2024 1 1:50 AM CDT Type 2 diabetes mellitus with stage 3a chronic kidney disease, with long-term current use of insulin (HCC) POCT GLUCOSE Routine 10/06/2024 11:50 AM CDT Type 2 diabetes mellitus with stage 3a chronic kidney disease, with long-term current use of insulin (HCC) POTASSIUM LEVEL Routine 09/26/2024 10:59 AM CDT Hyperkalemia HEPATIC FUNCTION PANEL Routine 09/26/2024 10:59 AM CDT Elevated liver enzymes EGFR Routine 09/22/2024 9:23 AM CDT Routine health maintenance LIPID PANEL Routine 09/22/2024 9:23 AM CDT Type 2 diabetes mellitus with stage 3a chronic kidney disease, with long-term current use of insulin (HCC) ALBUMIN CREATININE RATIO, URINE Routine 09/22/2024 9:23 AM CDT Type 2 diabetes mellitus with stage 3a chronic kidney disease, with long-term current use of insulin (HCC) DIABETIC EYE EXAM Routine 05/02/2024 PSA SCREEN Routine 03/31/2023 11:41 AM CDT Screening PSA (prostate specific antigen) COLONOSCOPY 07/21/2019 8:15 AM PRODUCT LINE MANAGER HEPATITIS C SCREENING Routine 10/15/2016 DIABETES FOOT EXAM Routine 09/11/2016 from Last 3 Months or Most Recently Relevant to Health Maintenance Results * POCT hemoglobin A1c (10/06/2024 11:50 AM CDT) Hemoglobin A1C, POC 5.1 4.0 - 5.6 % Blood 10/06/2024 11:5 0 AM CDT Tonya Spence NP POINT OF CARE TEST ORDERABLES F inal Result * POCT glucose (10/06/2024 11:50 AM CDT) Glucose Blood, POC 121 Normal Fasting 70 - 100, Random <200 mg/dL Blood 10/06/2024 11:5 0 AM CDT Tonya Spence NP POINT OF CARE TEST ORDERABLES F inal Result * (ABNORMAL) Potassium (09/26/2024 10:59 AM CDT) Pathologist [facility] Potassium, pl 5.0(H) 3.3 - 4.9 mmol/L Blood 09/26/2024 10:5 9 AM CDT 09/26/2024 11:12 AM CDT Kayla Green MD LAB BLOOD ORDERABLES Final Result [facility] ([place]) [address] [place] [address] [place] [address] * (ABNORMAL) Hepatic function panel (09/26/2024 10:59 AM CDT) [facility] Bilirubin, total 1.6(H) 0.1 - 1.2 mg/dL Bilirubin, direct 0.5(H) 0.1 - 0.3 mg/dL [facility] ([place]) Protein, pl 7.2 6.5 - 8.5 g/dL [facility] ([place]) Albumin 4.2 3.5 - 5.0 g/dL [facility] ([place]) Alk phos 103 40 - 130 Units/L [facility] ([place]) ALT 7 7 - 55 Units/L [facility] ([place]) AST 11 10 - 50 Units/L [facility] ([place]) Blood 09/26/2024 10:5 9 AM CDT 09/26/2024 11:12 AM CDT Kayla rGeen MD LAB BLOOD ORDERABLES Final Result [facility] ([place]) 1 [facility] [place] [address] * (ABNORMAL) eGFR (09/22/2024 9:23 AM CDT) [facility] eGFR 45(L) >=60 mL/min/1. 73 m2 Comment: Interpretive Data Reference Interval Normal >/= 90 mL/min/1.73m2 Mildly decreased* 60 - 89 mL/min/1.73m2 Mildly to moderately decreased 45 - 59 mL/min/1.73m2 Moderately to severely decreased 30 - 44 mL/min/1.73m2 Severely decreased 15 - 29 mL/min/1.73m2 Kidney Failure < 15 mL/min/1.73m2 *Relative to young adult level Estimated glomerular filtration rate is determined by the 2020 CKD-EPI equation recommended by the National Kidney Foundation (A Unifying Approach to GFR Estimation: Recommendations of the NKF-ASK Task Force on Reassessing the Inclusion of Race in Diagnosing Kidney Disease, JASN 2020). The CKD-EPI equation should not be used for patients with unstable renal function and has not been validated in children and those over 70. Current interpretive data was last reviewed 2021. Blood 09/22/2024 9:23 AM CDT 09/22/2024 9:31 AM CDT Kayla Green MD LAB BLOOD ORDERABLES Final Result [facility] ([place]) 1 [facility] Department of Laboratories [place], [place] [id number] * (ABNORMAL) Albumin Creatinine Ratio, Urine (09/22/2024 9:23 AM CDT) Albumin Ur 30.0 mg/L Comment: Interpretive Data No reference range established. Current interpretive data was last revised 2018. Testing performed by: [address] [address] Creatinine Ur 53.9 mg/dL [facility] ([place]) Comment: Interpretive Data No reference range established. Current interpretive data was last revised 2018. Testing performed by: [address] [address] Albumin Creatinine Ratio, Ur 56(H) 1 - 29 mg/g [facility] ([place]) Comment:Testing performed by : [address] [address] Urine 09/22/2024 9:23 AM CDT 09/22/2024 11:27 AM CDT Kayla Green MD LAB URINE ORDERABLES Final Result [facility] ([place]) 1 [facility] [place] [address] * (ABNORMAL) Lipid panel (09/22/2024 9:23 AM CDT) Cholesterol 97 30 - 199 mg/dL Comment: Interpretive Data Ages < or = 19 years Acceptable: <170 mg/dL Borderline high: 170-199 mg/dL High: >or= 200 mg/dL Ages > or = 20 years Desirable: <200 mg/dL Borderline high: 200-239 mg/dL High: >or= 240 mg/dL Literature References: 1. Expert Panel on Integrated Guidelines for Cardiovascular Health and Risk Reduction in Children and Adolescents. Pediatrics 2011;128:S213 2. NCEP Expert Panel. Circulation 2004;110:227 Current Interpretive Data was last revised on 2018. Triglycerides 64 <=149 mg/dL [facility] ([place]) Comment: Interpretive Data Ages < or = 9 years Acceptable: <75 mg/dL Borderline high: 75-99 mg/dL High: >or= 100 mg/dL Ages 10 to 20 years Acceptable: <90 mg/dL Borderline high: 90-129 mg/dL High: >or= 130 mg/dL Ages > or = 20 years Desirable: <150 mg/dL Borderline high: 150-199 mg/dL High: 200-499 mg/dL Very high: >or= 499 mg/dL Literature References: 1. Expert Panel on Integrated Guidelines for Cardiovascular Health and Risk Reduction in Children and Adolescents. Pediatrics 2011;128:S213 2. NCEP Expert Panel. Circulation 2004;110:227 Current Interpretive Data was last revised on 2018. HDL 34(L) >=40 mg/dL [facility] ([place]) Comment: Interpretive Data Ages < or = 19 years Acceptable: >45 mg/dL Borderline low: 40-45 mg/dL Low: <40 mg/dL Ages > or = 20 years Desirable: >or= 60 mg/dL Low: <40 mg/dL Literature References: 1. Expert Panel on Integrated Guidelines for Cardiovascular Health and Risk Reduction in Children and Adolescents. Pediatrics 2011;128:S213 2. NCEP Expert Panel. Circulation 2004;110:227 Current Interpretive Data was last revised on 2018. LDL, calculated 49 <=129 mg/dL [facility] ([place]) Comment: Interpretive Data Ages < or = 19 years Acceptable: <110 mg/dL Borderline high: 110-129 mg/dL High: >or= 130 mg/dL Ages > or = 20 years Optimal: <100 mg/dL Near optimal: 100-129 mg/dL Borderline high: 130-159 mg/dL High: >160 mg/dL Calculated using the Kameron LDL-C estimating equation. This equation was implemented on 2024. Prior to this date LDL-C was estimated using the Friedewald equation. Literature References: 1. Expert Panel on Integrated Guidelines for Cardiovascular Health and Risk Reduction in Children and Adolescents. Pediatrics 2011;128:S213 2. NCEP Expert Panel. Circulation 2004;110:227 3. Kameron Gomez et al. HANNAH Cardiol. 2020 October 06;5(5):540-548. doi: 10.1001/jamacardio.2020.0013 Current Interpretive Data was last revised on 2024. Non-HDL Cholesterol 63 mg/dL [facility] ([place]) Comment: Interpretive Data Ages < or = 19 years Acceptable: <120 mg/dL Borderline high: 120-144 mg/dL High: >145 mg/dL Ages > or = 20 years When triglycerides are >200 mg/dL, Non-HDL cholesterol is a secondary target of therapy with treatment goals that are 30 mg/dL greater than the LDL cholesterol target. Literature References: 1. Expert Panel on Integrated Guidelines for Cardiovascular Health and Risk Reduction in Children and Adolescents. Pediatrics 2011;128:S213 2. NCEP Expert Panel. Circulation 2004;110:227 Current Interpretive Data was last revised on 2018. Chol/HDL ratio 3 [facility] ([place]) Blood 09/22/2024 9:23 AM CDT 09/22/2024 9:31 AM CDT Narrative [facility] ([place]) - 09/22/2024 10:11 AM CDT These lab test should be done fasting. This means do not eat or drink for at least 12 hours prior to getting your blood drawn. Has the patient been fasting for 8 hours or more?->Yes Tonya Spence NP LAB BLOOD ORDERABLES Final Resu lt [facility] ([place]) [address] [facility] [place] [address] * Diabetic Eye Exam (05/02/2024) 05/02/2024 Historical Provider HEALTH MAINTENANCE Final Result * PSA screen (03/31/2023 11:41 AM CDT) PSA-Total 1.75 <=5.40 ng/mL [facility] ([place]) Comment: Interpretive Data AGE SEX REFERENCE INTERVAL 0 minutes-150 years Female None 0 minutes-49 years Male None 50-59 years Male 0-3.90 60-69 years Male 0-5.40 70-79 years Male 0-6.20 80-150 years Male 0-6.20 The Aniya PSA Total assay procedure was used. Results from different manufacturers or methods may not be comparable. Serial testing should be performed using the same method. Current interpretive data last revised 21. Blood 03/31/2023 11:4 1 AM CDT 03/31/2023 1:31 PM CDT Narrative [facility] ([place]) - 03/31/2023 2:20 PM CDT Non fasting Kayla Green MD LAB BLOOD ORDERABLES Final Result [facility] ([place]) [address] [facility] [place] [address] * COLONOSCOPY (07/21/2019 8:15 AM PRODUCT LINE MANAGER) Anatomical Region Laterality Modality Other Narrative Procedure Note Roosevelt You MD - 07/21/2019 8:15 AM CST [facility] Patient Name: Johnny Muro Procedure Date: 07/21/2019 8:15 AM Date of : 1955 Admit Type: Outpatient Age: 64 Gender: Male Attending MD: Roosevelt You M.D. Room: [facility] ENDOSCOPY ROOM 2 Note Status: Finalized Patient Profile: Refer to note in patient chart for documentation of history and physical. Procedure: Colonoscopy Indications: High risk colon cancer surveillance: Personalhistory of colonic polyps, Last colonoscopy: November 2013 Referring MD: Jordy Le M.D. Providers: Roosevelt You M.D. Impression: - Hemorrhoids found on perianal exam. - Hemorrhoids. - The examination was otherwise normal. - No specimens collected. Recommendation: - Discharge patient to home. - Resume previous diet. - Continue present medications. - Repeat colonoscopy in 5 years for surveillance. - Return to primary care physician as previously scheduled. Medicines: Propofol per Anesthesia Complications: No immediate complications. Estimated Blood Loss: Estimated blood loss: none. Procedure: Pre-Anesthesia Assessment: - This assessment was completed [Time of Assessment] prior to the administration of sedation. The benefits, risks and alternatives of theprocedure and sedation were discussed and informed consent was obtained. All questions were answered. Please referto the signed informed consent document in the medical record. The scope was passed under direct vision.The Colonoscope [id number] was introducedthrough the anus and advanced to the the cecum, identifiedby appendiceal orifice and ileocecal valve. Bowel prepwas administered using a single dose. The bowelpreparation used was Miralax. The bowel preparation used was bisacodyl tablets. The colonoscopy was performed without difficulty. The patient tolerated theprocedure well. The quality of the bowel preparation wasgood. Findings: Hemorrhoids were found on perianal exam. Hemorrhoids were found [Method Found]. [Size/Grade]. The exam was otherwise without abnormality. Electronically signed by Roosevelt You M.D. Roosevelt You M.D. 07/21/2019 9:03:05 AM Number of Addenda: 0 Note Initiated On: 07/21/2019 8:15 AM Procedure Code(s): --- Professional --- G0105, Colorectal cancer screening; colonoscopy on individual at high risk Diagnosis Code(s): --- Professional --- K64.9, Unspecified hemorrhoids Z86.010, Personal history of colonic polyps CPT copyright 2017 [employer] [place] [employer]. All rights reserved. The codes documented in this report are preliminary and upon certified professional coder reviewmay be revised to meet current compliance requirements. Recognized by the [place] [employer] for promoting quality in endoscopy Roosevelt You MD ENDOSCOPY PROCEDURES Final Re sult * HEPATITIS C SCREENING (10/15/2016) HEP C Normal Comment:NEGATIVE Historical Provider HEALTH MAINTENANCE Final Result * DIABETES FOOT EXAM (09/11/2016) Pathologist [facility] Diabetic Foot Exam Unknown Historical Provider HEALTH MAINTENANCE Final Result from Last 3 Months or Most Recently Relevant to Health Maintenance Insurance [facility] MEDICARE ADVANTAGE [facility] Address: [address] [address] [place] [address] [facility] HMO/PPO Address: [address] [address] [place] [address] [facility] MEDICARE ADVANTAGE [facility] MEDIC[facility] Address: [id number] [place] [address] Advance Directives For more information, please contact: [phone] * Full Code (Latest Code Status on File) Date Activated Date Inactivated Comments 03/13/2024 10:03 PM 03/25/2024 2:53 PM * Full Code Date Activated Date Inactivated Comments 07/21/2019 7:56 AM 07/21/2019 2:07 PM * Full Code Date Activated Date Inactivated Comments 07/21/2019 7:56 AM 07/21/2019 7:56 AM Care Teams Director Of Quantitative Research Relationship Specialty Start Date End Date Kayla Green MD [address] [place] [address] DR HILTON [address] [place] [id number] PCP - General Family Medicine 12/19/21
--- OUTSIDE RECORDS SUMMARY | 2024-12-26 15:20 | XMS_ITS | Clinical Summary ---
Author Organization [facility] Address [address] [place] [address] Care Team Providers Care Ranch Hand Name Role Phone Kayla Green MD Primary Care Provide r Allergies Active Allergy Reactions Criticality Noted Date Comments Bacitracin Anaphylaxis High Kycfr-Cnkuz-Srbyzbk-Pra moxine Other (See comments) Low Reaction: Rash, [...] 03/13/2024 Assessment & Plan (05/18/2024 2:47 PM CLINICAL RESEARCH ASSOCIATE): Hospitalized in March 2024 S/P completion of antibiotics via PICC at LT Repeat labs today: CBC, CMP, CRP Assessment [...] 06/15/2023 Assessment & Plan (06/30/2023 1:13 PM CLINICAL RESEARCH ASSOCIATE): Improving Recommend fluids, rest, humidification if needed. He was instructed to call back if symptoms do not improved in a week, or if worsening ones arise. Education provided. Assessment & Plan (06/15/2023 12:19 PM CLINICAL RESEARCH ASSOCIATE): Acute problem- this is a new problem- [...] 06/15/2023 Assessment & Plan (06/15/2023 12:16 PM CLINICAL RESEARCH ASSOCIATE): Acute problem- this is a new problem-onset [...] recommended. Assessment & Plan (05/19/2024 9:28 AM CLINICAL RESEARCH ASSOCIATE): Chronic, stable, not at goal BMI less [...] sessions. Assessment & Plan (08/04/2023 1:05 PM CLINICAL RESEARCH ASSOCIATE): This is a chronic condition which is [...] 07/14/2022 Assessment & Plan (07/14/2022 12:19 PM CLINICAL RESEARCH ASSOCIATE): CMP showed slight worsening kidney function Increased [...] months Assessment & Plan (05/19/2024 2:11 PM CLINICAL RESEARCH ASSOCIATE): Follows with Endocrinology: next OV 06/2024 Continue [...] telmisartan Assessment & Plan (08/04/2023 1:04 PM CLINICAL RESEARCH ASSOCIATE): This is a chronic condition which is [...] rosuvastatin Assessment & Plan (06/30/2023 11:54 AM CLINICAL RESEARCH ASSOCIATE): The patient was counseled on a heart-healthy, [...] rosuvastatin Assessment & Plan (05/13/2022 4:52 PM CLINICAL RESEARCH ASSOCIATE): This is a chronic condition which is [...] (06/14/2019): Added automatically from request for surgery [id number] Type 2 diabetes mellitus with hyperlipidemia Assessment & Plan (12/16/2023 2:52 PM CDT): This is a chronic condition which is at goal . Goal is LDL less than 70 Continue rosuvastatin Encouraged to eat healthy, include fresh fruits and vegetables daily and avoid eating fried foods more than once per week. Encouraged to take medications as prescribed. Assessment & Plan (08/04/2023 1:04 PM CLINICAL RESEARCH ASSOCIATE): This is a chronic condition which is [...] prescribed. 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 Continue regimen of lispro and restart the levemir. Micro/Cr ur ratio ordered F/u in 3 months Hyperuricemia 05/22/2017 Assessment & Plan (03/23/2023 1:06 PM CDT): stable continue allopurinol 300mg daily Assessment & Plan (07/14/2022 12:20 PM CLINICAL RESEARCH ASSOCIATE): Uric acid elevated Restart allopurinol 300mg daily [...] hypertension. Assessment & Plan (05/19/2024 2:08 PM CLINICAL RESEARCH ASSOCIATE): BP Readings from Last 3 Encounters: 05/18/24 [...] finding Assessment & Plan (08/04/2023 1:05 PM CLINICAL RESEARCH ASSOCIATE): This is a chronic condition which is at goal of less than 140/90 Personally reviewed labs. Continue telmisartan, amlodipine Encouraged to monitor weight and B/P at home Encouraged to take medications as prescribed. Assessment & Plan (06/30/2023 1:11 PM CLINICAL RESEARCH ASSOCIATE): Bp in the office today BP Readings [...] today BP Readings from Last 1 Encounters: 04/13/23 160/68 continue telmisartan 80mg daily and increase [...] prescribed. Assessment & Plan (07/14/2022 11:28 AM CLINICAL RESEARCH ASSOCIATE): Bp in the office today BP Readings from Last 1 Encounters: 07/14/22 150/80 Increase telmisartan to 80mg daily Recommend DASH diet, heart-healthy lifestyle, exercise. Discussed the risks of hypertension. F/u in 3 months Assessment & Plan (05/13/2022 4:53 PM CLINICAL RESEARCH ASSOCIATE): This is a chronic condition which is [...] 10/22/2013 Overview (09/10/2016): DMII WO CMP UNCNTRLD Encounters Date Type Department Care Team Description 12/20/2024 ACO Quality [facility] Care Organization [address] [place] [id number] Radha Randall 10/11/2024 ACO Clinical Pharmacist [address] [address] Janina Raman RPh 10/06/2024 11:30 AM CDT Office Visit [facility] Diabetes Endocrine Care at [address] [phone] Tonya Spence, MAUREEN Type 2 diabetes mellitus with stage 3a chronic kidney disease, with long-term current use of insulin (HCC) (Primary Dx); Type 2 diabetes mellitus with hyperlipidemia (HCC); Essential hypertension; Class 1 obesity due to excess calories with serious comorbidity and body mass index (BMI) of 32.0 to 32.9 in adult 10/04/2024 Telephone [facility] Medical Group Primary Care at [address] [place] [phone] Kayla Green MD No Call Made (Clarifying statin orders) 10/04/2024 ACO Clinical Pharmacist [address] [address] Janina Raman RP 09/26/2024 11:30 AM CDT Office Visit [facility] Medical [facility] Primary Care at [address] [place] [phone] Kayla Green MD Essential hypertension (Primary Dx); Type 2 diabetes mellitus with stage 3a chronic kidney disease, with long-term current use of insulin (HCC); Class 1 obesity due to excess calories with serious comorbidity and body mass index (BMI) of 32.0 to 32.9 in adult; Elevated bilirubin; Hyperkalemia 09/26/2024 10:45 AM CDT Lab [address] [phone] Elevated liver enzymes; Hyperkalemia 09/26/2024 Orders Only [facility] Primary Care at [address] [phone] Kayla Green MD Elevated bilirubin (Primary Dx) 09/26/2024 Results Follow-Up [facility] Primary Care at [address] [phone] Kayla Green MD Hepatic function panel, Potassium from Last 3 Months Immunizations Immunization Administration Dates Next Due Influenza, [...] 06/08/2009,12/2008 TD Preservative Free 06/08/2004 Tdap 03/30/2012 Surgical History Surgery Date Site/Laterality Comments OTHER SURGICAL HISTORY adenoid surgery-age 8 OTHER SURGICAL HISTORY R 1st metatarsal surgery OTHER SURGICAL HISTORY L 1st metatarsal surgery OTHER SURGICAL HISTORY hereditary spherocytosis: (invalid A1C) OTHER SURGICAL HISTORY 06/08/2002 - 06/07/2003 L ankle surgery FOOT SURGERY 06/08/2004 - 06/07/2005 R foot surgery FOOT SURGERY 06/08/2005 - 06/07/2006 L foot surgery FOOT SURGERY 06/08/2006 - 06/07/2007 L foot surgery FOOT SURGERY 06/08/2008 - 06/07/2009 L foot surgery CHOLECYSTECTOMY 06/08/2008 - 06/07/2009 Cholecystectomy OTHER SURGICAL HISTORY left femur fracture 2014 POLYPECTOMY COLONOSCOPY 11/21/2013 Medical History Medical History Date Comments Hx Other Medical elev LDL Hx Other Medical DM-age 44 Hx Other Medical osteomyelitis b /l feet Hx Other Medical hereditary sphe rocytosis Hx Other Medical R leg infection Type 2 diabetes mellitus (HCC) Anemia Hereditary Anemi a Hypertension Chronic kidney disease Abnormal labs in the past. Improved Colon polyp Hyperlipidemia Family History Medical History Relation Name Comments Diabetes Brother Diabetes mellit us; Leukemia Father Cancer -leukemi a; Multiple myeloma Father Cancer -mul tiple myeloma; Diabetes Mother Diabetes mellit us; Thyroid disease Sister thyroid diso rder; Relation Name Status Comments Brother Father Mother Sister Social History Tobacco Use Types Packs/Day Years [...] on file Legal Sex Male 11:53 PM CLINICAL RESEARCH ASSOCIATE Gender Identity Not on file Sexual Orientation Not on file Obstetrics History Last Filed Vital Signs Vital Sign Reading [...] Description 02/07/2025 11:00 AM CDT Office Visit [facility] Medical Group Diabetes Endocrine Care at [address] [place] [phone] Tonya Spence, OFFICE ASSISTANT [address] [place] [address] [address] [place] [address] Health Maintenance Due Date Last Done Comments Prostate Cancer Screening-PSA 03/31/2024 03/31/2023, 07/18/2021, 05/26/2019, Additional history exists Colon Cancer Screening-Colonoscopy 07/21/2024 07/21/2019, 11/21/2013, 11/21/2013 Foot Exam 12/15/2024 12/16/2023, 07/10, 03/31/2023, Additional history exists Influenza Vaccine (#1) 2025 , 04/21/2022, 04/03/2021, Additional history exists Hemoglobin A1C 04/08/2025 10/06/2024, 06/09, 03/14/2024, Additional history exists Well Visit 65+ 05/18/2025 05/18/2024, 03/08, 02/20/2022, Additional history exists Albumin Creatinine Ratio, Urine 09/22/2025 09/22/2024, 07/04/2024, 12/22/2023, Additional history exists Lipid Panel 09/22/2025 09/22/2024, 09/06, 12/22/2023, Additional history exists eGFR 09/22/2025 09/22/2024, 06/09, 06/28/2024, Additional history exists Covid-19 Vaccine (2 - season) 2025 01/28/2021 Postponed from 02/07/2024 (Patient declined, but will receive in the future) DTaP/Tdap/Td Vaccine (2 - Td or Tdap) 09/26/2025 03/30/2012, 06/08/2004 Postponed from 03/30/2022 (Insurance / Financial) Depression Screening 09/26/2025 09/26/2024, 05/18/2024, 01/26/2024, Additional history exists Fall Risk Assessment 09/26/2025 09/26/2024, 05/18/2024, 03/25/2024, Additional history exists Zoster Vaccine (1 of 2) 09/26/2025 Post poned from 2007 (Patient declined, but will receive in the future) Dilated Eye Exam 05/02/2026 05/02/2024, , 04/15/2021, Additional history exists Hepatitis C Screening Completed 10/15/2016 Colon Cancer Screening-CT Colonography Discontinued 07/21/2019, 11/21/2013, 11/21/2013 Colon Cancer Screening-DNA Stool Discontinued 07/21/2019, 11/21/2013, 11/21/2013 Colon Cancer Screening-FIT Discontinued 07/21, 02/13/2016, 11/21/2013, Additional history exists Colon Cancer Screening-Sigmoidoscopy Discontinued 07/21/2019, 11/21/2013, 11/21/2013 Pneumococcal vaccine 65+ Completed 023, 04/25/2015, 06/08/2009, Additional history exists Hepatitis B Screening Completed 09/22/2024 Medical Devices Implanted Type Area Customer Greeter Device Identifier Shelf Expiration Date Model / Serial / Lot Graft Soft Tissue Epifix Purion 8sq Cm Dhacm Allograft - [id number] Implanted:Qty: 1 on 06/19/2017 by Donavan Day DPM at [facility] Left: Foot [employer] 02/06/2022 [id number] / / [employer] Angio-Seal Vip 6fr Closere Device [id number] - [id number] Implanted:Qty: 1 on 03/22/2024 by Jessee Rubin MD at [facility] [employer] 08/27/2024 [id number] / / [id number] Procedures Procedure Name Priority Date/Time Associated Diagnosis [...] (prostate specific antigen) COLONOSCOPY 07/21/2019 8:15 AM CLINICAL RESEARCH ASSOCIATE HEPATITIS C SCREENING Routine 10/15/2016 DIABETES FOOT EXAM Routine 09/11/2016 from Last 3 Months or Most Recently Relevant to Health Maintenance Results * POCT hemoglobin A1c (10/06/2024 11:50 AM CDT) Hemoglobin A1C, POC 5.1 4.0 - 5.6 % Blood 10/06/2024 11:5 0 AM CDT us Tonya Spence NP POINT OF CARE TEST ORDERABLES F inal Result * POCT glucose (10/06/2024 11:50 AM CDT) Glucose Blood, POC 121 Normal Fasting 70 - 100, Random <200 mg/dL Blood 10/06/2024 11:5 0 AM CDT us Tonya Spence NP POINT OF CARE TEST ORDERABLES F inal Result * (ABNORMAL) Potassium (09/26/2024 10:59 AM CDT) [facility] Potassium, pl 5.0(H) 3.3 - 4.9 mmol/L Blood 09/26/2024 10:5 9 AM CDT 09/26/2024 11:12 AM CDT Kayla Green MD LAB BLOOD ORDERABLES Final Result JOSE ANGEL BERGMAN ([place]) 1 [facility] [employer] [place] [address] * (ABNORMAL) Hepatic function panel (09/26/2024 10:59 AM CDT) [facility] Bilirubin, total 1.6(H) 0.1 - 1.2 mg/dL [...] Final Result JOSE ANGEL BERGMAN ([place]) 1 [facility] [place] [address] * (ABNORMAL) eGFR (09/22/2024 9:23 AM CDT) [facility] eGFR 45(L) >=60 mL/min/1. 73 m2 Comment: [...] BLOOD ORDERABLES Final Result JOSE ANGEL BERGMAN ([place]) 1 [facility] [place] [address] * (ABNORMAL) Albumin Creatinine Ratio, Urine (09/22/2024 9:23 AM CDT) Albumin Ur 30.0 mg/L Comment: Interpretive Data No reference range established. Current interpretive data was last revised 2018. Testing performed by: [facility], [address] [place] [address]., [id number] Creatinine Ur 53.9 mg/dL JOSE ANGEL BERGMAN ([place]) Comment: Interpretive Data No reference range established. Current interpretive data was last revised 2018. Testing performed by: [facility], [address] [place] [address]., [id number] Albumin Creatinine Ratio, Ur 56(H) 1 - 29 mg/g JOSE ANGEL BERGMAN ([place]) Comment:Testing performed by : [facility], [address] [place] [address]., [id number] Urine 09/22/2024 9:23 AM CDT 09/22/2024 11:27 AM CDT us Kayla Green MD LAB URINE ORDERABLES Final Result [facility] ([place]) 1 [facility] [place] [address] * (ABNORMAL) Lipid panel (09/22/2024 9:23 AM [...] LDL, calculated 49 <=129 mg/dL JOSE ANGEL NOBLE) Comment: Interpretive Data Ages < or = [...] 3. Kameron Gomez et al. HANNAH Cardiol. 2019October 06;5(5):540-548. doi: 10.1001/jamacardio.2020.0013 Current Interpretive Data was [...] revised on 2018. Chol/HDL ratio 3 SHAINA NOBLE) Blood 09/22/2024 9:23 AM CDT 09/22/2024 9:31 AM CDT Narrative JOSE ANGEL NOBLE) - 09/22/2024 10:11 AM CDT These lab test should be done fasting. This means do not eat or drink for at least 12 hours prior to getting your blood drawn. Has the patient been fasting for 8 hours or more?->Yes Tonya Spence NP LAB BLOOD ORDERABLES Final Resu lt Performing Organization Address City/[facility]/ZIP Co de Phone Number JOSE ANGEL BERGMAN ([place]) 1 [facility] [employer] [place] [address] * Diabetic Eye Exam (05/02/2024) 05/02/2024 Historical [...] 03/31/2023 1:31 PM CDT Narrative [facility]SE ANGEL BERGM[facility] ([place]) - 03/31/2023 2:20 PM CDT Non fasting Kayla Green MD LAB BLOOD ORDERABLES Final Result Performing Organization Address City/[facility]/ZIP Co de Phone Number JOSE ANGEL BERGMAN ([place]) 1 [facility] [place] [address] * COLONOSCOPY (07/21/2019 8:15 AM CLINICAL RESEARCH ASSOCIATE) Anatomical Region Laterality Modality Other Narrative Procedure Note Roosevelt You MD - 07/21/2019 8:15 AM CST [facility] Patient Name: Johnny Muro Procedure Date: 07/21/2019 8:15 AM Date of : 1955 Admit Type: Outpatient Age: 64 Gender: Male Attending MD: Roosevelt You M.D. Room: [facility] ENDOSCOPY ROOM 2 Note Status: Finalized Patient [...] scope was passed under direct vision.The Colonoscope [id number] was introducedthrough the anus and advanced to [...] history of colonic polyps CPT copyright 2017 [employer] [place] [employer]. All rights reserved. The codes documented in this report are preliminary and upon oil and gas lease pumper reviewmay be revised to meet current compliance requirements. Recognized by the [place] [employer]intestinal [employer] for promoting quality in endoscopy Roosevelt You MD ENDOSCOPY PROCEDURES Final Re sult * HEPATITIS C SCREENING (10/15/2016) HEP C Normal Comment:NEGATIVE Historical Provider HEALTH MAINTENANCE Final Result * DIABETES FOOT EXAM (09/11/2016) Diabetic Foot Exam Unknown Historical Provider HEALTH MAINTENANCE Final Result from Last 3 Months or Most Recently Relevant to Health Maintenance Insurance [facility] MEDICARE ADVANTAGE [facility] MEDICARE ADVANTAGE Advance Directives For more information, please contact: [phone] * Full Code (Latest Code Status on File) Date Activated Date Inactivated Comments 03/13/2024 10:03 PM 03/25/2024 2:53 PM * Full Code Date Activated Date Inactivated Comments 07/21/2019 7:56 AM 07/21/2019 2:07 PM * Full Code Date Activated Date Inactivated Comments 07/21/2019 7:56 AM 07/21/2019 7:56 AM Care Teams [place] Relationship Specialty Start Date End Date Kayla Green MD 2 [facility] [place] [address] PCP - General Family Medicine 12/19/21
--- OUTSIDE RECORDS SUMMARY | 2024-12-26 15:20 | XMS_ITS | Encounter Summary ---
Author Organization [facility] Address [address] [place] [address] Phone Care Team Providers Care Outdoor Pursuits Instructor Name Role Phone Jordy Le MD Primary Care Provider [phone] Kayla Green MD Primary Care Provide r Kayla Green MD Primary Care Provide r Юлия Londono MA Unavailable Encounter Details Date Type Department Care Team (Late st Contact Info) Description 07/31/2017 Orders Only [facility] ProviderJody MD [facility] [place] [address] Social History Tobacco Use Types Packs/Day Years Used Date Smoking Tobacco: Never Smokeless Tobacco: Never Alcohol Use Standard Drinks/Week Comments No 0 (1 standard drink = 0.6 oz pur e alcohol) Sex and Gender Information Value Date Recorded Sex Assigned at Not on file Legal Sex Male 11:53 PM POST ANESTHESIA ROOM NURSE Gender Identity Not on file Sexual Orientation Not on file documented as of this encounter Plan of Treatment Upcoming Encounters Date Type Department Care Team (Late st Contact Info) Description 02/07/2025 11:00 AM CDT Office Visit [facility] Medical Group Diabetes Endocrine Care at [address] [place] [phone] Tonya Spence, SADDLE TREE STITCHER [address] [facility] [address] [place] [address] documented as of this encounter Procedures Procedure Name Priority Date/Time Associated Diagnosis Comments DISCHARGE LABORATORY CUMULATIVE REPORT 07/31/2017 12:00 AM POST ANESTHESIA ROOM NURSE documented in this encounter Results * DISCHARGE LABORATORY CUMULATIVE REPORT (07/31/2017 12:00 AM POST ANESTHESIA ROOM NURSE) Narrative 07/31/2017 12:00 AM POST ANESTHESIA ROOM NURSE Ordered by an unspecified provider. us Historical Provider LAB BLOOD ORDERABLES Elisa l Result documented in this encounter Visit Diagnoses Not on filedocumented in this encounter Additional Health Concerns Infection Onset Date Last Indicated Resolved Time COVID: Suspected 06/15/2023 06/15/2023 06/15/2023 12:35 PM POST ANESTHESIA ROOM NURSE documented as of this encounter Care Teams Outdoor Pursuits Instructor Relationship Specialty Start Date End Date Jordy Le MD PCP - General 09/05/16 11/05/21 Kayla Green MD [address] [facility] [address] [place] [address] PCP - General Family Medicine 11/06/21 12/18/21 Kayla Green MD [address] [place] [address] [address] [place] [address] PCP - General Family Medicine 12/19/21 Юлия Londono MA [address] [facility] [address] [place] [address] ACO Care Skin Care Specialist 05/02/24 05/23/24 documented as of this encounter
--- OUTSIDE RECORDS SUMMARY | 2024-12-26 15:20 | XMS_ITS | Encounter Summary ---
Author Organization [facility] Address [address] 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); Type 2 diabetes mellitus with foot ulcer [...] Diagnosis Comments CBC WITH AUTO DIFFERENTIAL Routine 06/22/2024 9:00 AM WATER USE INSPECTOR Cellulitis of right lower limb 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 (CODE) (HCC) ERYTHROCYTE SEDIMENTATION RATE (ESR) Routine 06/22/2024 9:00 AM WATER USE INSPECTOR Cellulitis of right lower limb 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 (CODE) (HCC) COMPLETE BLOOD COUNT (CBC) WITH DIFF Routine 06/22/2024 9:00 AM WATER USE INSPECTOR Cellulitis of right lower limb 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 (CODE) (HCC) C-REACTIVE PROTEIN (CRP) QUANT Routine 06/22/2024 9:00 AM WATER USE INSPECTOR Cellulitis of right lower limb 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 (CODE) ([facility]) BASIC METABOLIC PANEL W/ CALCIUM TOTAL Routine 06/22/2024 9:00 AM WATER USE INSPECTOR Cellulitis of right lower limb 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 (CODE) ([facility]) documented in this encounter Results * (ABNORMAL) CBC WITH AUTO DIFFERENTIAL (06/22/2024 9:00 AM WATER USE INSPECTOR) WBC 5.65 4.00 - 12.00 10(3)/mcL 06/22/2024 9:54 AM WATER USE INSPECTOR [facility] RBC 3.16(L) 4.40 - 5.80 10(6)/mcL 06/22/2024 9:54 AM WATER USE INSPECTOR [facility] HEMOGLOBIN (HGB) 9.8(L) 13.0 - 16.5 g/dL 06/22/2024 9:54 AM [facility] HEMATOCRIT (HCT) 27.9(L) 38.0 - 50.0 % 06/22/2024 9:54 AM WATER USE INSPECTOR [facility] MCV 88.3 82.0 - 96.0 fL 06/22/2024 9:54 AM [facility] MCH 31.0 26.0 - 32.0 pg 06/22/2024 9:54 AM [facility] MCHC 35.1 31.0 - 36.0 g/dL 06/22/2024 9:54 AM [facility] PLATELET COUNT 188 140 - 440 10(3)/[facility] 06/22/2024 9:54 AM [facility] RDW 16.8(H) 11.8 - 15.5 % 06/22/2024 9:54 AM [facility] MPV 10.3 8.0 - 12.6 fL 06/22/2024 9:54 AM [facility] NEUTROPHILS 63.1 40.0 - 68.0 % 06/22/2024 9:54 AM [facility] LYMPHOCYTES 25.7 19.0 - 49.0 % 06/22/2024 9:54 AM [facility] MONOCYTES 5.3 3.0 - 13.0 % 06/22/2024 9:54 AM [facility] EOSINOPHILS 5.0 0.0 - 8.0 % 06/22/2024 9:54 AM [facility] BASOPHILS 0.9 0.0 - 1.0 % 06/22/2024 9:54 AM [facility] ABSOLUTE NEUTROPHILS 3.57 1.40 - 5.30 10(3)/mcL 06/22/2024 9:54 AM [facility] ABSOLUTE LYMPHOCYTES 1.45 0.90 - 3.30 10(3)/[facility] 06/22/2024 9:54 AM [facility] ABSOLUTE MONOCYTES 0.30 0.10 - 0.90 10(3)/mcL 06/22/2024 9:54 AM [facility] ABSOLUTE EOSINOPHIL 0.28 0.00 - 0.50 10(3)/[facility] 06/22/2024 9:54 AM [facility] ABSOLUTE BASOPHILS 0.05 0.00 - 0.10 10(3)/[facility] 06/22/2024 9:54 AM [facility] NRBC PER 100 WBC 0 06/22/19 9:54 AM [facility] Blood No Phlebotomy Charged / Unknown 06/22/2024 9:00 AM WATER USE INSPECTOR 06/22/2024 9:51 AM WATER USE INSPECTOR us Christ Russo MD HEMATOLOGY ORDERABLES Final Resu lt Performing Organization Address [facility] Co de Phone Number [facility] [address] [place] [address] * ERYTHROCYTE SEDIMENTATION RATE (ESR) (06/22/2024 9:00 AM WATER USE INSPECTOR) ESR (SED RATE, ERYTHROCYTE SEDIMENTATION RATE) <1 <20 mm/h 06/22/2024 10:06 AM WATER USE INSPECTOR [facility] Comment: Patients presenting with increased level of fibrinogen, gamma globulins, or abnormally shaped RBCs could affect the results for the erythrocyte sedimentation rate (ESR). Results should be clinically correlated. Blood No Phlebotomy Charged / Unknown 06/22/2024 9:00 AM WATER USE INSPECTOR 06/22/2024 9:51 AM WATER USE INSPECTOR us Christ Russo MD HEMATOLOGY ORDERABLES Final Resu lt Performing Organization Address [facility] de Phone Number [facility] [address] [place] [address] * C-REACTIVE PROTEIN (CRP) QUANT (06/22/2024 9:00 AM WATER USE INSPECTOR) C-REACTIVE PROTEIN 0.31 <0.50 mg/dL 06/22/2024 10:22 AM WATER USE INSPECTOR [facility] Blood No Phlebotomy Charged / Unknown 06/22/2024 9:00 AM WATER USE INSPECTOR 06/22/2024 9:51 AM WATER USE INSPECTOR us Christ Russo MD CHEMISTRY ORDERABLES Final Resul t Performing Organization Address [facility] Co de Phone Number [facility] [address] [place] [address] * (ABNORMAL) BASIC METABOLIC PANEL W/ CALCIUM TOTAL (06/22/2024 9:00 AM [facility]) SODIUM 143 136 - 145 mmol/L 06/22/2024 10:22 AM [facility] POTASSIUM 5.3(H) 3.5 - 5.1 mmol/L 06/22/2024 10:22 AM [facility] CHLORIDE 115(H) 98 - 107 mmol/L 06/22/2024 10:22 AM [facility] CO2, VENOUS 24 22 - 30 mmol/L 06/22/2024 10:22 AM [facility] ANION GAP 9.3 <18.0 mmol/L 06/22/2024 10:22 AM [facility] GLUCOSE 163(H) 70 - 99 mg/dL 06/22/2024 10:22 AM [facility] BUN 37(H) 8 - 26 mg/dL 06/22/2024 10:22 AM [facility] CREATININE, BLOOD 1.30 0.70 - 1.30 mg/dL 06/22/2024 10:22 AM [facility] BUN/CREATININE RATIO 28(H) 12 - 20 ratio 06/22/2024 10:22 AM [facility] CALCIUM 8.7 8.7 - 10.5 mg/dL 06/22/2024 10:22 AM [facility] GFR, ESTIMATED 60 >=60 06/22/2024 10:22 AM [facility] Comment: Creatinine Clearance is the preferred criteria for selecting drug dose adjustments in renally impaired patients. The GFR is provided as additional pertinent clinical information. GFR is reported in mL/min/1.73 sq m. Calculation based on the Chronic Kidney Disease Epidemiology Collaboration (CKD- EPI) equation refit without adjustment for race. GFR, EST. >60 >=60 025 10:22 AM [facility] GFR, EST. 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
[2024-12-26 15:43] LABS: EDCOVIDSCREEN Negative (Negative); EDINFLUASCREEN Positive (Negative); EDINFLUBSCREEN Negative (Negative)
== END 2024-12-26 15:45 | disposition home or self-care (01) ==
PROVIDERS: Emergency Provider Nurse Practitioner; PCP Family Medicine
DX: J10.1 Influenza due to other identified influenza virus with other respiratory manifestations (principal); Z20.822 Contact with and (suspected) exposure to COVID-19; I10 Essential (primary) hypertension
CPT/HCPCS: 87426; 87804; 99202; G0463